=== PATIENT | male | born 1945 | race Caucasian/White ===

== ENCOUNTER 2019-05-14 11:22 | Inpatient (IN) | payer OTHER, MEDICARE ==
[~2019-05-14] VITALS: Ht 177.8 cm; Wt 86.1 kg
[~2019-05-14 11:22] MED LIST: CODGUAEL; CYCL10 PO; DESI25; GLUCOMETER; INS70/30I; INSN100I; INSR10I; LISHYD1012; METO50; NAPR500 PO; NIAC500; RANI150; ROSI4; SIMV40; TRAM50 PO
[2019-05-14 11:53] LABS: Source, Urine Clean Catch
[2019-05-14] MEDS ORDERED: ALLO100 PO (11:53)
[2019-05-14] MEDS ORDERED: Norvasc10 MG PO (11:53)
[2019-05-14] MEDS ORDERED: ATOR40TA PO (11:54)
[2019-05-14] MEDS ORDERED: Amoxicillin500 MG PO (11:54)
[2019-05-14] MEDS ORDERED: ARTIFICIAL TEA1 EACH BOTHEYES (11:55)
[2019-05-14] MEDS ORDERED: FURO40 PO (11:56)
[2019-05-14] MEDS ORDERED: FURO20 PO (11:56)
[2019-05-14] MEDS ORDERED: BASAGLAR K100 UNIT/1 SC ×2 (11:57→17:05)
[2019-05-14] MEDS ORDERED: HYDRA50 PO (11:57)
[2019-05-14] MEDS ORDERED: OMEPRAZOLE20 MG PO (11:58)
[2019-05-14] MEDS ORDERED: Isosorbide Mono60 MG PO (11:58)
[2019-05-14] MEDS ORDERED: POTCHL20ER PO (11:58)
[2019-05-14 11:59] LABS: Bilirubin, Urine Neg (Neg); Blood, Urine 1+ (Neg); Glucose Qualitative, Urine Neg (Neg); Ketones, Urine Neg (Neg); Leukocyte Esterase, Urine Neg (Neg); Nitrite, Urine Neg (Neg); Protein, Urine 2+ (Neg); Urobilinogen, Urine NORM (Normal)
[2019-05-14] MEDS ORDERED: ZIPR20 PO (12:00)
[2019-05-14] MEDS ORDERED: Coumadin2 MG PO ×2 (12:00→13:20)
[2019-05-14] MEDS ORDERED: METO2.5 PO (12:01)
[2019-05-14 12:02] LABS: BASOPHILS ABSOLUTE AUTO 0.03 K/mm3 (0.00-0.23); BASOPHILS PERCENT AUTO 0 % (0-2); EOSINOPHILS ABSOLUTE AUTO 0.14 K/mm3 (0.00-0.68); EOSINOPHILS PERCENT AUTO 2 % (0-6); Hemoglobin 12.8 g/dL (13.5-17.5); IMMATURE GRAN ABSOLUTE AUTO 0.04 K/mm3 (0.00-0.10); IMMATURE GRAN PERCENT AUTO 1 % (0-1); LYMPHOCYTES ABSOLUTE AUTO 1.76 K/mm3 (0.84-5.20); LYMPHOCYTES PERCENT AUTO 24 % (21-46); MONOCYTES ABSOLUTE AUTO 0.96 K/mm3 (0.16-1.47); MONOCYTES PERCENT AUTO 13 % (4-13); Mean Corpuscular HGB 27.2 pg (26.0-34.0); Mean Corpuscular HGB Conc 32.8 g/dL (31.5-36.5); Mean Corpuscular Volume 83 fL (80-100); Mean Platelet Volume 12.9 fL (9.1-12.4); NEUTROPHILS ABSOLUTE AUTO 4.42 K/mm3 (1.96-9.15); NEUTROPHILS PERCENT AUTO 60 % (41-73); Platelet Count 191 K/mm3 (150-400); RDW Coefficient Variation 16.5 % (11.7-14.2); RDW Standard Deviation 49.6 fL (35.1-46.3); Red Blood Cell Count 4.71 M/mm3 (4.30-5.90); White Blood Cell Count 7.35 K/mm3 (4.00-11.30)
[2019-05-14 12:09] LABS: Appearance, Urine Clear (Clear); Color, Urine Pale Yellow (P-Yellow)
[2019-05-14 12:11] LABS: Bacteria Not Seen /hpf; Red Blood Cells, Urine Rare /hpf (0-2); Squamous Epithelial Cells Rare /hpf (Few); White Blood Cells, Urine Not Seen /hpf (0-5)
[2019-05-14 12:17] LABS: International Normalized Ratio 1.38; Prothrombin Time Results 14.2 Sec (9.7-11.5)
[2019-05-14 12:20] LABS: Albumin, Blood 3.4 g/dL (3.4-5.0); Albumin/Globulin Ratio 0.8 (0.8-1.8); Bilirubin, Total 0.6 mg/dL (0.1-1.0); Bun/Creatinine Ratio 40.1 (12.0-20.0); Calcium, Blood 8.3 mg/dL (8.5-10.1); Creatinine, Blood 2.52 mg/dL (0.60-1.20); Globulin, Blood 4.2 g/dL (2.2-4.0); Potassium, Blood 2.8 mmol/L (3.5-5.5); Total Protein, Blood 7.6 g/dL (6.4-8.2)
[2019-05-14] MEDS ORDERED: Humulin R500 UNIT/1 SC (13:18)
--- NOTE | 2019-05-14 15:33 | NUR ---
echocardiogram completed
--- NOTE | 2019-05-14 15:56 | NUR ---
PT ARRIVED TO PCU 16 VIA GURNEY FROM ED. REPORT WAS GIVEN. PT IS A/OX3, BUT SEEMS A BIT SLOW TO ANSWER, AND DOESN'T CONTRIBUTE TO THE CONVERSATION, HIS CAME WITH HIM TO THE ED BUT WENT HOME. 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
[2019-05-14 17:54] LABS: Bun/Creatinine Ratio 40.4 (12.0-20.0); Calcium, Blood 8.1 mg/dL (8.5-10.1); Creatinine, Blood 2.4 mg/dL (0.60-1.20); Potassium, Blood 3.2 mmol/L (3.5-5.5)
--- NOTE | 2019-05-14 18:17 | NUR ---
pt doing ok, he denies complaints, his is at bedside, call light in reach.
[2019-05-15 04:11] LABS: BASOPHILS ABSOLUTE AUTO 0.03 K/mm3 (0.00-0.23); BASOPHILS PERCENT AUTO 1 % (0-2); EOSINOPHILS ABSOLUTE AUTO 0.28 K/mm3 (0.00-0.68); EOSINOPHILS PERCENT AUTO 5 % (0-6); Hematocrit 37.4 % (37.0-53.0); IMMATURE GRAN ABSOLUTE AUTO 0.03 K/mm3 (0.00-0.10); IMMATURE GRAN PERCENT AUTO 1 % (0-1); LYMPHOCYTES ABSOLUTE AUTO 1.59 K/mm3 (0.84-5.20); LYMPHOCYTES PERCENT AUTO 29 % (21-46); MONOCYTES ABSOLUTE AUTO 0.81 K/mm3 (0.16-1.47); MONOCYTES PERCENT AUTO 15 % (4-13); Mean Corpuscular HGB 26.7 pg (26.0-34.0); Mean Corpuscular HGB Conc 32.1 g/dL (31.5-36.5); Mean Corpuscular Volume 83 fL (80-100); NEUTROPHILS PERCENT AUTO 50 % (41-73); Platelet Count 173 K/mm3 (150-400); RDW Coefficient Variation 16.8 % (11.7-14.2); RDW Standard Deviation 51.5 fL (35.1-46.3); Red Blood Cell Count 4.49 M/mm3 (4.30-5.90); White Blood Cell Count 5.44 K/mm3 (4.00-11.30)
[2019-05-15 04:26] LABS: International Normalized Ratio 1.49; Prothrombin Time Results 15.2 Sec (9.7-11.5)
[2019-05-15 04:32] LABS: Albumin, Blood 3.1 g/dL (3.4-5.0); Albumin/Globulin Ratio 0.9 (0.8-1.8); Bilirubin, Total 0.7 mg/dL (0.1-1.0); Bun/Creatinine Ratio 40.1 (12.0-20.0); Calcium, Blood 8.2 mg/dL (8.5-10.1); Creatinine, Blood 2.37 mg/dL (0.60-1.20); Globulin, Blood 3.6 g/dL (2.2-4.0); Potassium, Blood 3.3 mmol/L (3.5-5.5); Total Protein, Blood 6.7 g/dL (6.4-8.2)
--- NOTE | 2019-05-15 06:19 | NUR ---
SHIFT SUMMARY ASSUMED CARE OF PT AT 1900 FROM SUZANNA BROTHERS, PATIENT AWAKE AND ALERT IN BED IN NO SIGNS OF DISTRESS. LUNG SOUNDS CLEAR UPPER LOBES, COARSE AND DIMINISHED IN BASES. IRREGULAR HEARTBEAT YING AT 55. PATIENT'S BASELINE SEEMS TO BE SLOW, SIMPLE RESPONSE, YET APPROPRIATE. MEDICATED AND TREATED PER EMAR AND UNIT PROTOCOL, NO ISSUES OUTSIDE OF ROUTINE MEDS. PATIENT USED URINAL APPROPRIATELY AND STAYED IN BED THE WHOLE SHIFT, USING CPAP FROM AROUND 10PM. WILL CONTINUE TO MONITOR AND WILL PASS CARE AND REPORT TO ONCOMING SHIFT AT 0700. BED LOCKED AND LOW, CALL LIGHT W/IN REACH
--- NOTE | 2019-05-15 07:30 | NUR ---
PT LAYING IN BED WITH HIS CPAP IN PLACE, SEEMS A BIT MORE ALERT THAN YESTERDAY WHEN ADMITTED, HE REPORTS IT TOOK HIM A WHILE TO GO TO SLEEP BUT SLEPT WELL AFTER, A/OX3, PLEASANT AND COOPERATIVE WITH CARE, FOLLOWS COMMANDS WELL, DENIES PAIN, LUNGS ARE CLEAR DIM IN BASES, RESP EVEN AND UNLABORED, NO COUGH NOTED, HRIRR, TELE IN PLACE RUNNING SR WITH FIRST DEGREE BLOCK, BBB, AND PVC'S, NO EDEMA NOTED, PPP+1, CAP REFILL <3SEC, VS STABLE, AFEBRILE, IV STABLE, IV SITES ARE CLEAR AND PATENT, BTX4, ABD FLAT SOFT NONTENDER, VOIDS WITHOUT DIFF, HAS PULLUPS IN PLACE, BUT ARE SOILED, PLACED URINAL FOR HIM, WILL GIVE HIM A BATH THIS AM, SKIN C/W/D, TJ PARKER, CALL LIGHT IN REACH.
--- NOTE | 2019-05-15 13:30 | NUR ---
pt doing ok, in to visit, she is concerned about his blood sugars, and that he isn't on the same insulin dosages as he is at home. call to Dr. Albert to let her know this. call light in reach.
--- NOTE | 2019-05-15 18:16 | NUR ---
pt doing ok, he states he's feeling pretty good, did get his insulin changed to his home doses. no acute changes this shift. call light in reach.
--- NOTE | 2019-05-15 22:23 | NUR ---
ASSUMED CARE APPROXIMATELY 1900; PT ALERT; PLEASANT AND COMPLIANT W/ CARE; AMBULATED TO BATHROOM W/ ASSISTANCE; CALLS APPROPRIATELY; FOLLOWS COMMANDS; PT STATED HE HAD FAMILY VISITING TODAY AND IS READY TO SLEEP; CPAP IN PLACE; WARM BLANKET BROUGHT TO PT; PT DENIES CHEST PAIN; DENIES NEEDS AT THIS TIME; CALL LIGHT IN REACH; BED IN LOWEST POSITION; WILL CONTINUE TO MONITOR CLOSELY
[2019-05-16 04:44] LABS: BASOPHILS ABSOLUTE AUTO 0.03 K/mm3 (0.00-0.23); BASOPHILS PERCENT AUTO 0 % (0-2); EOSINOPHILS ABSOLUTE AUTO 0.44 K/mm3 (0.00-0.68); EOSINOPHILS PERCENT AUTO 5 % (0-6); Hematocrit 41.2 % (37.0-53.0); Hemoglobin 13.5 g/dL (13.5-17.5); IMMATURE GRAN ABSOLUTE AUTO 0.02 K/mm3 (0.00-0.10); IMMATURE GRAN PERCENT AUTO 0 % (0-1); LYMPHOCYTES ABSOLUTE AUTO 1.61 K/mm3 (0.84-5.20); LYMPHOCYTES PERCENT AUTO 19 % (21-46); MONOCYTES ABSOLUTE AUTO 0.82 K/mm3 (0.16-1.47); MONOCYTES PERCENT AUTO 10 % (4-13); Mean Corpuscular HGB 27.4 pg (26.0-34.0); Mean Corpuscular HGB Conc 32.8 g/dL (31.5-36.5); Mean Corpuscular Volume 84 fL (80-100); Mean Platelet Volume 12.4 fL (9.1-12.4); NEUTROPHILS ABSOLUTE AUTO 5.67 K/mm3 (1.96-9.15); NEUTROPHILS PERCENT AUTO 66 % (41-73); Platelet Count 180 K/mm3 (150-400); RDW Coefficient Variation 16.6 % (11.7-14.2); RDW Standard Deviation 50.4 fL (35.1-46.3); Red Blood Cell Count 4.92 M/mm3 (4.30-5.90); White Blood Cell Count 8.59 K/mm3 (4.00-11.30)
[2019-05-16 05:00] LABS: International Normalized Ratio 1.51; Prothrombin Time Results 15.4 Sec (9.7-11.5)
[2019-05-16 05:05] LABS: Bun/Creatinine Ratio 36.1 (12.0-20.0); Calcium, Blood 8.3 mg/dL (8.5-10.1); Creatinine, Blood 2.19 mg/dL (0.60-1.20); Potassium, Blood 3.4 mmol/L (3.5-5.5)
--- NOTE | 2019-05-16 05:59 | NUR ---
SHIFT SUMMARY PT PLEASANT AND COMPLIANT T/O SHIFT; AMBULATED TO BATHROOM x 2 W/ GATE BELT AND FWW; PT SLOW BUT STEADY ON FEET; PT HAD SHORT RUN OF SVT THIS AM, ASSYMPTOMATIC; PT DENIES PAIN; PT ON RA W/ O2 SATS >92; CALL LIGHT IN REACH; BED IN LOWEST POSITION; WILL CONTINUE TO MONITOR UNTIL HAND OFF TO DAY SHIFT RN.
--- NOTE | 2019-05-16 07:58 | NUR ---
AM NOTE. ASSUMED CARE OF PT APROX 0700. PT IS A&Ox4 WITH OCC FORGETFULNESS. PT WAS ADMITTED FOR CHF EXAC. PT IS CURRENTLY BEING TREATED WTIH LASIX. PT IS ON RA WITH O2 SATS >92%. PT IS IN NSR W/PACS IN THE 70'S. TRACE EDEMA IS NOTED TO HIS BLE. L/S CLEAR T/O DIM IN THE BASES. BT PRESENT AND NORMOACTIVE. ABD IS SOFT AND NONTENDER TO PALP. PT IS UP IN THE CHAIR FOR BREAKFAST W/1 PERSON ASSIST. CALL LIGHT IN REACH, WILL CONTINUE TO MONITOR.
--- NOTE | 2019-05-16 18:07 | NUR ---
SHIFT SUMMARY. NO ACUTE NEGATIVE CHANGES NOTED THIS SHIFT. PT'S VS HAVE BEEN STABLE. PT HAS BEEN UP IN RECLINER MOST OF THE DAY. PT HAS BEEN CONT OF URINE THIS SHIFT. PT HAS BEEN WALKING TO THE BATHROOM WITH 1 PERSON ASSIST. PER PT'S , IF PT HAS FRUIT OF ANY KIND HIS BLOOD SUGAR WILL "GO SIMRAN HIGH." SO PT AND REQUEST NO FRUIT. ALSO PT'S STATES THAT HE SHOULD NOT GET HIS INSULIN INJECTIONS IN HIS BELLY/ABD AREA BECAUSE IT DOES NOT ABSORB WELL. CALL LIGHT IN REACH, BED IS LOCKED AND LOW WILL CONTINUE TO MONITOR UNTIL REPORT IS GIVEN TO ONCOMING RN.
--- NOTE | 2019-05-16 20:00 | NUR ---
ASSUMED CARE APPROXIMATELY 1900; PT ALERT AND IS MORE ENGAGED W/ CARE TODAY; PT SMILING AND JOKING; ENCOURAGED PT TO BRUSH TEETH AND TO SHOWER; LINEN CHANGES AND SHOWER PROVIDED BY THIS NURSE AND AID; PT TOLERATED WELL; PT REQUESTED CPAP UPON POSITIONING IN BED AND STATED HE WANTED TO REST; CALL LIGHT IN REACH; BED IN LOWEST POSITION; WILL CONTINUE TO MONITOR CLOSELY
[2019-05-17 04:09] LABS: BASOPHILS ABSOLUTE AUTO 0.03 K/mm3 (0.00-0.23); BASOPHILS PERCENT AUTO 0 % (0-2); EOSINOPHILS ABSOLUTE AUTO 0.33 K/mm3 (0.00-0.68); EOSINOPHILS PERCENT AUTO 4 % (0-6); Hematocrit 37.8 % (37.0-53.0); Hemoglobin 12.5 g/dL (13.5-17.5); IMMATURE GRAN ABSOLUTE AUTO 0.02 K/mm3 (0.00-0.10); IMMATURE GRAN PERCENT AUTO 0 % (0-1); LYMPHOCYTES ABSOLUTE AUTO 2.17 K/mm3 (0.84-5.20); LYMPHOCYTES PERCENT AUTO 25 % (21-46); MONOCYTES ABSOLUTE AUTO 0.71 K/mm3 (0.16-1.47); MONOCYTES PERCENT AUTO 8 % (4-13); Mean Corpuscular HGB 27.7 pg (26.0-34.0); Mean Corpuscular HGB Conc 33.1 g/dL (31.5-36.5); Mean Corpuscular Volume 84 fL (80-100); Mean Platelet Volume 12.6 fL (9.1-12.4); NEUTROPHILS PERCENT AUTO 63 % (41-73); Platelet Count 168 K/mm3 (150-400); RDW Coefficient Variation 16.7 % (11.7-14.2); RDW Standard Deviation 51.2 fL (35.1-46.3); Red Blood Cell Count 4.51 M/mm3 (4.30-5.90); White Blood Cell Count 8.76 K/mm3 (4.00-11.30)
[2019-05-17 04:24] LABS: International Normalized Ratio 1.69; Prothrombin Time Results 17.1 Sec (9.7-11.5)
[2019-05-17 04:34] LABS: Albumin, Blood 2.9 g/dL (3.4-5.0); Albumin/Globulin Ratio 0.8 (0.8-1.8); Bilirubin, Total 0.6 mg/dL (0.1-1.0); Bun/Creatinine Ratio 35.3 (12.0-20.0); Calcium, Blood 8.1 mg/dL (8.5-10.1); Creatinine, Blood 2.04 mg/dL (0.60-1.20); Globulin, Blood 3.7 g/dL (2.2-4.0); Magnesium, Blood 1.7 mg/dL (1.6-2.4); Potassium, Blood 3.5 mmol/L (3.5-5.5); Total Protein, Blood 6.6 g/dL (6.4-8.2)
--- NOTE | 2019-05-17 06:29 | NUR ---
SHIFT SUMMARY PT ALERT; PLEASANT AND COMPLIANT W/ CARE; SLEPT APPROXIMATELY 7 HOURS W/ CPAP IN PLACE; CURRENTLY RESTING IN BED ON RA; O2 SATS >90; WILL CONTINUE TO MONITOR UNTIL HAND OFF TO DAY SHIFT RN.
--- NOTE | 2019-05-17 13:38 | NUR ---
DISCHARGE HOME PT DISCHARGED HOME VIA W/C ACCOMPANIED BY . PT ALERT AND ORIENTED. MEDICATION ORDER FAXED TO [facility] AND [place]. IV REMOVED X2. PRESSURE DRESSING APPLIED TO BOTH SITES. NO BLEEDING NOTED. CONTINUE POT.
== END 2019-05-17 15:13 | disposition home or self-care (01) | DRG 291 ==
LOC: ER 11:22 → PCU 13:59
PROVIDERS: Emergency Medicine; Nurse Practitioner Acute Care; ADMIT Internal Medicine
DX: I13.0 Hypertensive heart and chronic kidney disease with heart failure and stage 1 through stage 4 chronic kidney disease, or unspecified chronic kidney disease (principal); I50.31 Acute diastolic (congestive) heart failure; N18.3 Chronic kidney disease, stage 3 (moderate); I25.10 Atherosclerotic heart disease of native coronary artery without angina pectoris; R19.7 Diarrhea, unspecified; K21.9 Gastro-esophageal reflux disease without esophagitis; E11.51 Type 2 diabetes mellitus with diabetic peripheral angiopathy without gangrene; E11.22 Type 2 diabetes mellitus with diabetic chronic kidney disease; G47.33 Obstructive sleep apnea (adult) (pediatric); E78.5 Hyperlipidemia, unspecified; D63.1 Anemia in chronic kidney disease; F32.9 Major depressive disorder, single episode, unspecified; M10.9 Gout, unspecified; E87.6 Hypokalemia; Z95.1 Presence of aortocoronary bypass graft; Z79.01 Long term (current) use of anticoagulants; Z79.4 Long term (current) use of insulin; Z79.899 Other long term (current) drug therapy
CPT/HCPCS: 36415; 70450; 71046; 80048; 80053; 81001; 82947; 83735; 83880; 84145; 84484; 85025; 85610; 85730; 93005; 93010; 93306; 94660; 94762; 96365; 96366; 96368; 97110; 97116; 97162; 97165; 97530; 99285-25; A9270; J1815; J1940; J3475; J3480; J7120

== ENCOUNTER 2020-06-27 18:11 | Inpatient (IN) | payer OTHER, MEDICARE ==
[~2020-06-27] VITALS: Ht 177.8 cm; Wt 83.5 kg
[~2020-06-27 18:11] MED LIST changes: +ALLO100 PO; +ARTIFICIAL TEA1 EACH BOTHEYES; +Amoxicillin500 MG PO; +FURO20 PO; +Humulin R500 UNIT/1 SC; +Isosorbide Mono60 MG PO; +METO2.5 PO; +OMEPRAZOLE20 MG PO; +ZIPR20 PO
[2020-06-27 19:00] LABS: BASOPHILS ABSOLUTE AUTO 0.07 K/mm3 (0.00-0.23); BASOPHILS PERCENT AUTO 1 % (0-2); EOSINOPHILS PERCENT AUTO 3 % (0-6); Hematocrit 36.5 % (37.0-53.0); Hemoglobin 11.8 g/dL (13.5-17.5); IMMATURE GRAN ABSOLUTE AUTO 0.02 K/mm3 (0.00-0.10); IMMATURE GRAN PERCENT AUTO 0 % (0-1); LYMPHOCYTES ABSOLUTE AUTO 2.77 K/mm3 (0.84-5.20); LYMPHOCYTES PERCENT AUTO 28 % (21-46); MONOCYTES ABSOLUTE AUTO 1.01 K/mm3 (0.16-1.47); MONOCYTES PERCENT AUTO 10 % (4-13); Mean Corpuscular HGB 27.9 pg (26.0-34.0); Mean Corpuscular HGB Conc 32.3 g/dL (31.5-36.5); Mean Corpuscular Volume 86 fL (80-100); Mean Platelet Volume 11.2 fL (9.1-12.4); NEUTROPHILS ABSOLUTE AUTO 5.76 K/mm3 (1.96-9.15); NEUTROPHILS PERCENT AUTO 58 % (41-73); Platelet Count 234 K/mm3 (150-400); RDW Coefficient Variation 16.7 % (11.7-14.2); RDW Standard Deviation 52.2 fL (35.1-46.3); Red Blood Cell Count 4.23 M/mm3 (4.30-5.90); White Blood Cell Count 9.93 K/mm3 (4.00-11.30)
[2020-06-27] MEDS ORDERED: AMOX250 PO (19:09)
[2020-06-27] MEDS ORDERED: SERT25 PO (19:11)
[2020-06-27] MEDS ORDERED: SPIR25 PO (19:12)
[2020-06-27 19:14] LABS: International Normalized Ratio 1.7; Prothrombin Time Results 17.7 Sec (9.7-11.5)
[2020-06-27 19:22] LABS: Albumin, Blood 3.5 g/dL (3.4-5.0); Albumin/Globulin Ratio 0.9 (0.8-1.8); Bilirubin, Total 0.4 mg/dL (0.1-1.0); Bun/Creatinine Ratio 32.8 (12.0-20.0); Calcium, Blood 7.9 mg/dL (8.5-10.1); Creatinine, Blood 2.38 mg/dL (0.60-1.20); Globulin, Blood 3.8 g/dL (2.2-4.0); Potassium, Blood 3.7 mmol/L (3.5-5.5); Total Protein, Blood 7.3 g/dL (6.4-8.2)
[2020-06-27 20:02] LABS: Source, Urine Catheter
[2020-06-27 20:07] LABS: Appearance, Urine Clear (Clear); Bilirubin, Urine Neg (Neg); Blood, Urine Neg (Neg); Color, Urine Yellow (P-Yellow); Glucose Qualitative, Urine Neg (Neg); Ketones, Urine Neg (Neg); Leukocyte Esterase, Urine Neg (Neg); Nitrite, Urine Neg (Neg); Protein, Urine Neg (Neg); Urobilinogen, Urine NORM (Normal)
[2020-06-27 20:59] LABS: Influenza A, PCR Negative (NEGATIVE); Influenza B, PCR Negative (NEGATIVE); Resp Syncytial Virus, PCR Negative (NEGATIVE); SARS-Cov-2 (COVID-19) PCR, MMC Negative (NEGATIVE)
[2020-06-27] MEDS ORDERED: ATOR40TA PO (21:44)
[2020-06-27] MEDS ORDERED: Norvasc10 MG PO (21:44)
[2020-06-27] MEDS ORDERED: BUPROPION XL150 M1 PO (21:45)
[2020-06-27] MEDS ORDERED: CALCIUM 500 MG1 EAC5 PO (21:46)
[2020-06-27] MEDS ORDERED: FERROUS GLUCON324 M6 PO (21:46)
[2020-06-27] MEDS ORDERED: FURO20 PO (21:47)
[2020-06-27] MEDS ORDERED: HYDRA50 PO (21:47)
[2020-06-27] MEDS ORDERED: BASAGLAR K100 UNIT/1 SC (21:48)
[2020-06-27] MEDS ORDERED: POTCHL20ER PO (21:49)
[2020-06-27] MEDS ORDERED: NOVOLOG FL100 UNIT/3 SC (21:49)
[2020-06-27] MEDS ORDERED: METO25 PO (21:50)
[2020-06-27] MEDS ORDERED: TAMS.4ER PO (21:50)
[2020-06-27] MEDS ORDERED: Coumadin2 MG PO (21:51)
[2020-06-27] MEDS ORDERED: VANICREAM TOP (21:52)
[2020-06-28 02:41] LABS: BASOPHILS ABSOLUTE AUTO 0.06 K/mm3 (0.00-0.23); BASOPHILS PERCENT AUTO 1 % (0-2); EOSINOPHILS ABSOLUTE AUTO 0.21 K/mm3 (0.00-0.68); EOSINOPHILS PERCENT AUTO 2 % (0-6); Hematocrit 35.9 % (37.0-53.0); Hemoglobin 11.5 g/dL (13.5-17.5); IMMATURE GRAN ABSOLUTE AUTO 0.02 K/mm3 (0.00-0.10); IMMATURE GRAN PERCENT AUTO 0 % (0-1); LYMPHOCYTES ABSOLUTE AUTO 1.68 K/mm3 (0.84-5.20); LYMPHOCYTES PERCENT AUTO 18 % (21-46); MONOCYTES ABSOLUTE AUTO 0.69 K/mm3 (0.16-1.47); MONOCYTES PERCENT AUTO 7 % (4-13); Mean Corpuscular HGB 27.8 pg (26.0-34.0); Mean Corpuscular Volume 87 fL (80-100); Mean Platelet Volume 11.7 fL (9.1-12.4); NEUTROPHILS ABSOLUTE AUTO 6.83 K/mm3 (1.96-9.15); NEUTROPHILS PERCENT AUTO 72 % (41-73); Platelet Count 217 K/mm3 (150-400); RDW Coefficient Variation 16.5 % (11.7-14.2); RDW Standard Deviation 52.9 fL (35.1-46.3); Red Blood Cell Count 4.14 M/mm3 (4.30-5.90); White Blood Cell Count 9.49 K/mm3 (4.00-11.30)
[2020-06-28 03:00] LABS: Albumin, Blood 3.1 g/dL (3.4-5.0); Albumin/Globulin Ratio 0.9 (0.8-1.8); Bilirubin, Total 0.6 mg/dL (0.1-1.0); Bun/Creatinine Ratio 32.6 (12.0-20.0); Calcium, Blood 7.9 mg/dL (8.5-10.1); Creatinine, Blood 2.36 mg/dL (0.60-1.20); Globulin, Blood 3.6 g/dL (2.2-4.0); Total Protein, Blood 6.7 g/dL (6.4-8.2)
[2020-06-28 03:13] LABS: CPK Creatine Kinase 105 U/L (39-308)
[2020-06-28 11:04] LABS: Troponin I 0.128 ng/mL (0.000-0.040)
--- NOTE | 2020-06-28 11:06 | NUR ---
AM NOTE PT CBG THIS AM 445; NOTIFIED DR ALVAREZ NEW ORDERS FOR LANTUS 5UNITS BID/ DR ALVAREZ PLACED NEW ORDERS FOR LANTUS 10 UNIT IN AM AND 5UNIT AT NOC PRIOR TO ADMINISTRATION. RECHECK OF BLOOD GLUCOSE >400; NOTIFIED DR ALVAREZ, NEW ORDERS TO GIVE AN ADDITIONAL 10 INITS. PT ALERT AND ORIENTEDx3; CALM AND COOPERATIVE WITH CARE. PT DENIES PAIN, NAUSEA, AND DIZZINESS. PT REPORTS SOB WITH EXERTION, SPO2 >90%. VSS. NO OTHER ACUTE CHANGES NOTED DURING SHIFT. WILL CONTINUE TO MONITOR.
--- NOTE | 2020-06-28 11:16 | NUR ---
Echocardiogram completed.
--- NOTE | 2020-06-28 18:44 | NUR ---
SHIFT SUMMARY BLOOD GLUCOSE TRENDING DOWN T/O SHIFT. PT CONTINUES TO BE ALERT AND ORIENTED, AND DENIES PAIN, CHEST PAIN, NAUSEA AND DIZZINESS. PT SOB WITH EXERTION. UP WITH 1 PERSON ASSIST. VSS. NO OTHER ACUTE CHANGES NOTED DURING SHIFT. WILL CONTINUE TO MONITOR UNTIL REPORT GIVEN TO ONCOMING RN.
--- NOTE | 2020-06-28 19:22 | NUR ---
CRITICAL PTT; NOTIFIED PHARMACY; ORDERS TO HOLD HEPARIN FOR 1 HR AND RECHECK LABS.
--- NOTE | 2020-06-28 20:56 | NUR ---
per pharamacy - ptt resulted 96.1. adjusted hep gtt to start at 12u/kg/hr. will monitor for signs and symptoms of bleeding. vss.
[2020-06-29 04:21] LABS: BASOPHILS ABSOLUTE AUTO 0.08 K/mm3 (0.00-0.23); BASOPHILS PERCENT AUTO 1 % (0-2); EOSINOPHILS ABSOLUTE AUTO 0.27 K/mm3 (0.00-0.68); EOSINOPHILS PERCENT AUTO 3 % (0-6); Hematocrit 35.2 % (37.0-53.0); Hemoglobin 11.2 g/dL (13.5-17.5); IMMATURE GRAN ABSOLUTE AUTO 0.03 K/mm3 (0.00-0.10); IMMATURE GRAN PERCENT AUTO 0 % (0-1); LYMPHOCYTES ABSOLUTE AUTO 1.65 K/mm3 (0.84-5.20); LYMPHOCYTES PERCENT AUTO 18 % (21-46); MONOCYTES ABSOLUTE AUTO 0.75 K/mm3 (0.16-1.47); MONOCYTES PERCENT AUTO 8 % (4-13); Mean Corpuscular HGB 27.8 pg (26.0-34.0); Mean Corpuscular HGB Conc 31.8 g/dL (31.5-36.5); Mean Corpuscular Volume 87 fL (80-100); Mean Platelet Volume 11.7 fL (9.1-12.4); NEUTROPHILS PERCENT AUTO 70 % (41-73); Platelet Count 212 K/mm3 (150-400); RDW Coefficient Variation 16.6 % (11.7-14.2); RDW Standard Deviation 52.6 fL (35.1-46.3); Red Blood Cell Count 4.03 M/mm3 (4.30-5.90); White Blood Cell Count 9.28 K/mm3 (4.00-11.30)
[2020-06-29 04:42] LABS: Albumin, Blood 2.9 g/dL (3.4-5.0); Albumin/Globulin Ratio 0.8 (0.8-1.8); Bilirubin, Total 0.5 mg/dL (0.1-1.0); Bun/Creatinine Ratio 32.4 (12.0-20.0); Calcium, Blood 8.3 mg/dL (8.5-10.1); Creatinine, Blood 2.19 mg/dL (0.60-1.20); Globulin, Blood 3.6 g/dL (2.2-4.0); Potassium, Blood 3.7 mmol/L (3.5-5.5); Total Protein, Blood 6.5 g/dL (6.4-8.2)
[2020-06-29 04:50] LABS: International Normalized Ratio 2.38; Prothrombin Time Results 24.2 Sec (9.7-11.5)
--- NOTE | 2020-06-29 05:01 | NUR ---
CRITICAL PTT 120- PER PHARMACY HOLDING HEP GTT FOR ONE HOUR
--- NOTE | 2020-06-29 05:55 | NUR ---
SHIFT SUMMARY PT RESTED WELL THROUGH NIGHT. ALERT AND ORIENTED - ABLE TO MAKE NEEDS KNOWN. SATS >90% ON ROOM AIR. TELE NSR - NO C/O CHEST PAIN. CBG ELEVATED - CALLED MD - ORDERED SEMGLEE FOR AM. VOIDING TO URINAL - ADEQUATE UO. NO BM. NO C/O PAIN. HEP GTT TEMPORARILY PAUSED D/T ELEVATED PTT. RESTARTING HEP GTT AT 0600 WITH NEW DOSING. WILL CONTINUE TO MONITOR. VSS. CALL LIGHT WITHIN REACH, BED IN LOWEST POSITION. WILL CONTINUE TO MONITOR.
[2020-06-29] MEDS ORDERED: VANICREAM TD ×2 (09:29→09:31)
[2020-06-29] MEDS ORDERED: BASAGLAR K100 UNIT/1 SC (09:36)
--- NOTE | 2020-06-29 10:38 | NUR ---
PT REPORTS DIZZINESS WITH HOME O2; PT STATES THAT DOESNT HAPPEN AT HOME, HE STATES HE WALKS REGULARLY AT HOME. ORTHOSTATIC VS COMPELTED. NOTIFIED DR ALVAREZ OF RESULTS; NEW ORDERS TO HAVE PT WEAR COMPRESSION STOCKINGS AT HOME AND PLACE ROWAN HOSE ON PT PRIOR TO DISCHARGE; AND TO CONTINUE WITH DISCHARGE HOME.
--- NOTE | 2020-06-29 13:19 | NUR ---
DISCHARGE SUMMARY PT A&Ox4; CALM AND COOPERAIVE WITH CARE. PT RESTING IN BED DUIRNG SHIFT, UP WITH WALKER AND SBA. PT DENIES PAIN, CHEST PAIN, NAUSEA, SOB, AND DIZZINESS. VSS. NO OTHER ACUTE CHANGES NOTED DURING SHIFT. PT EDUCATED ON DISCHARGE INSTRUCTIONS, FOLLOW UP APPOINTMENT AND MEDICATIONS CHANGES. [facility] PT LEFT ROOM VIA WHEELCHAIR AT 1231. PT STABLE UPON DISCHARGE
== END 2020-06-29 12:49 | disposition home or self-care (01) | DRG 189 ==
LOC: ER 18:11 → PCU 22:08
PROVIDERS: Internal Medicine; Pharmacist; Physician Assistant; ADMIT Internal Medicine
PROC: 5A09357 Assistance with Respiratory Ventilation, Less than 24 Consecutive Hours, Continuous Positive Airway Pressure (ICD-10-PCS; principal; 2020-06-27)
DX: J96.01 Acute respiratory failure with hypoxia (principal); I50.32 Chronic diastolic (congestive) heart failure; I13.0 Hypertensive heart and chronic kidney disease with heart failure and stage 1 through stage 4 chronic kidney disease, or unspecified chronic kidney disease; Z79.01 Long term (current) use of anticoagulants; Z79.4 Long term (current) use of insulin; Z95.5 Presence of coronary angioplasty implant and graft; I25.10 Atherosclerotic heart disease of native coronary artery without angina pectoris; Z95.2 Presence of prosthetic heart valve; Z89.411 Acquired absence of right great toe; E11.51 Type 2 diabetes mellitus with diabetic peripheral angiopathy without gangrene; E11.22 Type 2 diabetes mellitus with diabetic chronic kidney disease; G47.33 Obstructive sleep apnea (adult) (pediatric); Z89.412 Acquired absence of left great toe; E11.649 Type 2 diabetes mellitus with hypoglycemia without coma; Z20.828 Contact with and (suspected) exposure to other viral communicable diseases
CPT/HCPCS: 0241U; 36415; 71045; 78580; 80053; 81003; 82140; 82550; 82947; 83605; 83880; 84484; 85025; 85610; 85730; 86850; 86900; 86901; 87040; 87086; 93005; 93010; 93306; 94640; 94660; 94761; 94762; 96374; 99285-25; A9270; A9540; J0610; J1644; J1650; J7030

== ENCOUNTER 2020-12-06 19:17 | Inpatient (IN) | payer OTHER ==
[~2020-12-06] VITALS: Ht 177.8 cm; Wt 95.7 kg
[~2020-12-06 19:17] MED LIST changes: +AMOX250 PO; +ATOR40TA PO; +BASAGLAR K100 UNIT/1 SC; +BUPROPION XL150 M1 PO; +CALCIUM 500 MG1 EAC5 PO; +Coumadin2 MG PO; +FERROUS GLUCON324 M6 PO; +HYDRA50 PO; +METO25 PO; +NOVOLOG FL100 UNIT/3 SC; +Norvasc10 MG PO; +POTCHL20ER PO; +SERT25 PO; +SPIR25 PO; +TAMS.4ER PO; +VANICREAM TD; +VANICREAM TOP
[2020-12-06 19:42] LABS: BASOPHILS ABSOLUTE AUTO 0.05 K/mm3 (0.00-0.23); BASOPHILS PERCENT AUTO 1 % (0-2); EOSINOPHILS ABSOLUTE AUTO 0.21 K/mm3 (0.00-0.68); EOSINOPHILS PERCENT AUTO 3 % (0-6); Hematocrit 32.9 % (37.0-53.0); Hemoglobin 10.9 g/dL (13.5-17.5); IMMATURE GRAN ABSOLUTE AUTO 0.02 K/mm3 (0.00-0.10); IMMATURE GRAN PERCENT AUTO 0 % (0-1); LYMPHOCYTES ABSOLUTE AUTO 1.06 K/mm3 (0.84-5.20); LYMPHOCYTES PERCENT AUTO 14 % (21-46); MONOCYTES ABSOLUTE AUTO 0.62 K/mm3 (0.16-1.47); MONOCYTES PERCENT AUTO 8 % (4-13); Mean Corpuscular HGB 27.2 pg (26.0-34.0); Mean Corpuscular HGB Conc 33.1 g/dL (31.5-36.5); Mean Corpuscular Volume 82 fL (80-100); Mean Platelet Volume 12.5 fL (9.1-12.4); NEUTROPHILS ABSOLUTE AUTO 5.82 K/mm3 (1.96-9.15); NEUTROPHILS PERCENT AUTO 75 % (41-73); Platelet Count 222 K/mm3 (150-400); RDW Coefficient Variation 17.6 % (11.7-14.2); RDW Standard Deviation 52.7 fL (35.1-46.3); Red Blood Cell Count 4.01 M/mm3 (4.30-5.90); White Blood Cell Count 7.78 K/mm3 (4.00-11.30)
[2020-12-06 20:05] LABS: Troponin I 0.081 ng/mL (0.000-0.040)
[2020-12-06 20:08] LABS: Albumin, Blood 3.3 g/dL (3.4-5.0); Albumin/Globulin Ratio 0.8 (0.8-1.8); Bilirubin, Total 0.5 mg/dL (0.1-1.0); Bun/Creatinine Ratio 29.2 (12.0-20.0); Calcium, Blood 8.1 mg/dL (8.5-10.1); Creatinine, Blood 2.19 mg/dL (0.60-1.20); Globulin, Blood 4.2 g/dL (2.2-4.0); Potassium, Blood 4.8 mmol/L (3.5-5.5); Total Protein, Blood 7.5 g/dL (6.4-8.2)
[2020-12-06] MEDS ORDERED: AMLO10 PO (21:42)
[2020-12-06] MEDS ORDERED: ALLO100 PO (21:42)
[2020-12-06] MEDS ORDERED: ATOR40TA PO (21:43)
[2020-12-06] MEDS ORDERED: Budeprion Xl300 MG PO (21:43)
[2020-12-06] MEDS ORDERED: FERROUS GLUCON324 M2 PO (21:44)
[2020-12-06] MEDS ORDERED: CALCIUM 600 +1 EA11 PO (21:44)
[2020-12-06] MEDS ORDERED: FURO20 PO (21:44)
[2020-12-06] MEDS ORDERED: NOVOLOG FL100 UNIT/3 SC (21:45)
[2020-12-06] MEDS ORDERED: OMEP20ER PO (21:45)
[2020-12-06] MEDS ORDERED: Isosorbide Mono30 MG PO (21:45)
[2020-12-06] MEDS ORDERED: METO50 PO (21:45)
[2020-12-06] MEDS ORDERED: TAMS.4ER PO (21:46)
[2020-12-06] MEDS ORDERED: SPIR25 PO (21:46)
[2020-12-06] MEDS ORDERED: POTCHL20ER PO (21:46)
[2020-12-06] MEDS ORDERED: Coumadin2 MG PO ×2 (21:47→21:54)
--- NOTE | 2020-12-07 00:35 | NUR ---
PATIENT IS A NEW ADMIT FROM THE ED. ARRIVED VIA W/C AND SBA TRANSFER FROM W/C TO BED. AXOX 3 AND ON ROOM AIR. DENIES CHEST PAIN, SOB, AND N/V. NITRO PATCH PLACEMENT ON UPPER LEFT CHEST FROM ED. BILATERAL TOES AMPUTATED. TELEMETRY PLACED AND TECH REPORTS NSR WITH FIRST DEGREE @60. USING URINAL AT BEDSIDE. PATIENT REPORTS LOST ODL FROM [employer] EVENT WHILE DRIVING ON [employer] 2013. CYST ON RIGHT UPPER CHEST DIME SIZE. PATIENT ORIENTED TO ROOM AND CALL LIGHT SYSTEM. REPORTS USES CPAP AT HOME AND RT NOTIFIED. CALL LIGHT IN REACH.
--- NOTE | 2020-12-07 03:16 | NUR ---
SHIFT SUMMARY PATIENT HAD NO ACUTE CHANGES OBSERVED. AXOX 3 AND SBA STANDING USING URINAL AT BEDSIDE AND ONE ASSIST TO BR. DENIES CHEST PAIN, SOB, AND N/V. NITRO PATCH UPPER CHEST FROM ED. PIV REMAINS INTACT. IV ABXS INFUSED. MEASUREMENT TECHNICIAN REPORTS NSR W/FIRST DEGREE @ 60. HX BILATERAL TOES AMPUTATED. REPORTS USING CPAP AT HOME AND RT NOTIFIED. REFUSED CPAP HERE. CYST RIGHT UPPER CHEST DIME SIZE NEAR MIDLINE. VSS/AFEBRILE. REPORTS [facility] PATIENT. CALL LIGHT IN REACH. BED IN LOWEST POSITION AND ALARM ACTIVATED, IMPULSIVE. WILL CONTINUE TO MONITOR UNTIL DAY SHIFT NURSE ASSUMES CARE.
[2020-12-07 04:40] LABS: BASOPHILS ABSOLUTE AUTO 0.06 K/mm3 (0.00-0.23); BASOPHILS PERCENT AUTO 1 % (0-2); EOSINOPHILS ABSOLUTE AUTO 0.27 K/mm3 (0.00-0.68); EOSINOPHILS PERCENT AUTO 4 % (0-6); Hematocrit 32.8 % (37.0-53.0); Hemoglobin 10.8 g/dL (13.5-17.5); IMMATURE GRAN ABSOLUTE AUTO 0.02 K/mm3 (0.00-0.10); IMMATURE GRAN PERCENT AUTO 0 % (0-1); LYMPHOCYTES ABSOLUTE AUTO 1.27 K/mm3 (0.84-5.20); LYMPHOCYTES PERCENT AUTO 17 % (21-46); MONOCYTES PERCENT AUTO 9 % (4-13); Mean Corpuscular HGB 27.2 pg (26.0-34.0); Mean Corpuscular HGB Conc 32.9 g/dL (31.5-36.5); Mean Corpuscular Volume 83 fL (80-100); Mean Platelet Volume 11.4 fL (9.1-12.4); NEUTROPHILS ABSOLUTE AUTO 5.26 K/mm3 (1.96-9.15); NEUTROPHILS PERCENT AUTO 69 % (41-73); Platelet Count 182 K/mm3 (150-400); RDW Coefficient Variation 17.3 % (11.7-14.2); RDW Standard Deviation 51.9 fL (35.1-46.3); Red Blood Cell Count 3.97 M/mm3 (4.30-5.90); White Blood Cell Count 7.58 K/mm3 (4.00-11.30)
[2020-12-07 04:54] LABS: International Normalized Ratio 3.29; Prothrombin Time Results 33.2 Sec (9.7-11.5)
--- NOTE | 2020-12-07 04:57 | NUR ---
STATING 87% ON ROOM AIR AND PLACED ON 2L O2 NC STATING 92%. WCTM
[2020-12-07 04:59] LABS: Albumin, Blood 3.2 g/dL (3.4-5.0); Albumin/Globulin Ratio 0.8 (0.8-1.8); Bilirubin, Total 0.5 mg/dL (0.1-1.0); Bun/Creatinine Ratio 30.6 (12.0-20.0); Calcium, Blood 7.7 mg/dL (8.5-10.1); Creatinine, Blood 2.19 mg/dL (0.60-1.20); Globulin, Blood 4.1 g/dL (2.2-4.0); Potassium, Blood 3.8 mmol/L (3.5-5.5); Total Protein, Blood 7.3 g/dL (6.4-8.2)
[2020-12-07 05:08] LABS: Troponin I 0.118 ng/mL (0.000-0.040)
[2020-12-07] MEDS ORDERED: INSULANI SC ×2 (08:15→08:16)
[2020-12-07 11:15] LABS: Troponin I 0.118 ng/mL (0.000-0.040)
[2020-12-07 13:14] LABS: SARS-Cov-2 (COVID-19) PCR, MMC NEGATIVE (NEGATIVE)
--- NOTE | 2020-12-07 16:02 | NUR ---
BLADDER SCAN/MEDICATIONS THIS RN CALLED AND NOTIFIED DR. CONRAD PT HAD 296 ML IN BLADDER WITH NO URGE TO VOID. ALSO DISCUSSED PT'S LONG ACTING INSULIN HOME DOSE AND CPAP. NEW ORDERS PER DR. CONRAD. SEE PHYSICIAN ORDERS. NO NEW ORDERS FOR BLADDER SCAN AMOUNT AT THIS TIME.
--- NOTE | 2020-12-07 18:09 | NUR ---
SHIFT SUMMARY PT HAS HAD NO COMPLAINTS THIS SHIFT. PT CONTINUES TO BE ON 2L OXYGEN VIA NC. PT HAS HAD A GOOD APPETITE. PT UP TO CHAIR FOR DINNER AND TOLERATING WELL. NO ACUTE CHANGES THIS SHIFT. WILL CONTINUE TO MONITOR AND REPORT TO ONCOMING RN. CALL LIGHT IN REACH.
[2020-12-08 05:18] LABS: BASOPHILS ABSOLUTE AUTO 0.06 K/mm3 (0.00-0.23); BASOPHILS PERCENT AUTO 1 % (0-2); EOSINOPHILS ABSOLUTE AUTO 0.13 K/mm3 (0.00-0.68); EOSINOPHILS PERCENT AUTO 2 % (0-6); Hematocrit 31.4 % (37.0-53.0); Hemoglobin 10.3 g/dL (13.5-17.5); IMMATURE GRAN ABSOLUTE AUTO 0.02 K/mm3 (0.00-0.10); IMMATURE GRAN PERCENT AUTO 0 % (0-1); LYMPHOCYTES ABSOLUTE AUTO 0.71 K/mm3 (0.84-5.20); LYMPHOCYTES PERCENT AUTO 8 % (21-46); MONOCYTES ABSOLUTE AUTO 0.73 K/mm3 (0.16-1.47); MONOCYTES PERCENT AUTO 8 % (4-13); Mean Corpuscular HGB 27.2 pg (26.0-34.0); Mean Corpuscular HGB Conc 32.8 g/dL (31.5-36.5); Mean Corpuscular Volume 83 fL (80-100); Mean Platelet Volume 12.4 fL (9.1-12.4); NEUTROPHILS ABSOLUTE AUTO 7.12 K/mm3 (1.96-9.15); NEUTROPHILS PERCENT AUTO 81 % (41-73); Platelet Count 180 K/mm3 (150-400); RDW Coefficient Variation 17.2 % (11.7-14.2); RDW Standard Deviation 52.2 fL (35.1-46.3); Red Blood Cell Count 3.78 M/mm3 (4.30-5.90); White Blood Cell Count 8.77 K/mm3 (4.00-11.30)
[2020-12-08 05:33] LABS: Anion Gap 10 mmol/L (6-16); Blood Urea Nitrogen 71 mg/dL (8-24); Bun/Creatinine Ratio 29.2 (12.0-20.0); CO2, Blood 23 mmol/L (21-32); Calcium, Blood 7.7 mg/dL (8.5-10.1); Chloride, Blood 105 mmol/L (98-108); Creatinine, Blood 2.43 mg/dL (0.60-1.20); Glomerular Filtration Rate 28 (60-); Glucose, Blood 437 mg/dL (70-99); Potassium, Blood 4.1 mmol/L (3.5-5.5); Sodium, Blood 138 mmol/L (136-145)
[2020-12-08 05:34] LABS: Albumin, Blood 3.2 g/dL (3.4-5.0)
[2020-12-08 05:42] LABS: International Normalized Ratio 3.32; Prothrombin Time Results 33.5 Sec (9.7-11.5)
--- NOTE | 2020-12-08 06:12 | NUR ---
MACHINE TESTER SUMMARY PT HAS HAD HIGH BLOOD SUGARS TONIGHT. CBG [address] ALVAREZ AT THAT TIME AND GAVE ADDITIONAL 4 UNITS OF HUMALOG IN ADDITION TO SCHEDULED 10 UNITS OF SEMGLEE. AROUND 0300 PT WOKE UP TO USE RESTROOM AND WAS A BIT DISORIENTED AND STATED THAT HIS BLOOD SUGAR MAY BE LOW. CHECKED CBG AT THAT TIME AND WAS 401. SHORTLY AFTER WITH MORNING LAB DRAWS CBG 437 ALTHOUGH PT HAD NOT BEEN EATING ANYTHING THROUGH THE NIGHT. NOTIFIED DR BIRD WHO GAVE ORDER TO CHANGE SEMGLEE TO 20 UNITS BID AND TO GIVE FIRST DOSE NOW. WILL CONTINUE TO MONITOR.
--- NOTE | 2020-12-08 11:46 | NUR ---
BLOOD GLUCOSE THIS RN CALLED DR. CONRAD AND NOTIFIED HER OF PT'S BLOOD SUGAR OF 452. ORDERS TO GIVE INSULIN PER SLIDING SCALE AND RECHECK IN 2 HOURS. ADDED ADA RESTRICTION TO PT'S CARDIAC DIET. WILL CONTINUE TO MONITOR. CALL LIGHT IN REACH.
--- NOTE | 2020-12-08 16:51 | NUR ---
SHIFT SUMMARY- PT IS A/O, PLESANT AND COOPERATIVE. HE IS EATING AND DRINKING WELL. HE TOOK A SHOWER THIS SHIFT. HE WAS UP TO THE CHAIR FOR MEALS. HE IS RECIEVING IV ABX. HIS BLOOD SUGARS HAVE BEEN ELEVATED THIS SHIFT. HIS BED IS IN THE LOW POSITION AND CALL LIGHT IS WITHIN REACH.
[2020-12-09 05:20] LABS: Anion Gap 7 mmol/L (6-16); Blood Urea Nitrogen 78 mg/dL (8-24); Bun/Creatinine Ratio 29.1 (12.0-20.0); CO2, Blood 24 mmol/L (21-32); Calcium, Blood 8.1 mg/dL (8.5-10.1); Chloride, Blood 108 mmol/L (98-108); Creatinine, Blood 2.68 mg/dL (0.60-1.20); Glomerular Filtration Rate 25 (60-); Glucose, Blood 104 mg/dL (70-99); International Normalized Ratio 3.59; Phosphorus, Blood 4.2 mg/dL (2.5-4.9); Potassium, Blood 3.8 mmol/L (3.5-5.5); Prothrombin Time Results 36.1 Sec (9.7-11.5); Sodium, Blood 139 mmol/L (136-145)
--- NOTE | 2020-12-09 05:23 | NUR ---
BUSINESS PRACTICES OFFICER SUMMARY PT AAOX4 AND PLEASANT. STILL WITH 2+ EDEMA OF BLE BUT DOES LOOK SLIGHTLY IMPROVED COMPARED TO YESTERDAY. CBG 204 AT HS, HUMALOG HELD PER SLIDING SCALE BUT PT STILL RECIEVED 20 UNITS OF SEMGLEE. CBG 104 WITH AM LABS. PT REMAINS ON 2L O2 VIA NC AND CPAP AT NIGHT, O2 SATS LOW 90'S ON AVG. WILL CONTINUE TO MONITOR.
--- NOTE | 2020-12-09 19:46 | NUR ---
a+o, call light in reach, 2L via nc, saline locked, bsr shared with noc nurse, cbg's lower than yesterday but insulin coverage was required prior to each meal
--- NOTE | 2020-12-10 04:43 | NUR ---
SUMMARY: A/OX4, SPECIFIES NEEDS BUT MILDLY FORGETFULL AT TIMES. BED ALARM ON FOR OCCASIONAL IMPULSIVITY AND FALL RISK. HE USES URINAL INDEPENDENTLY AND IS SBA TO TOILET. PT HAD MEDIUM BM THIS SHIFT. PITTING EDEMA NOTED TO BLE'S. HE REMAINS ON 2L O2 W/SOB AND TACHYPNEA NOTED AT TIMES, SPO2 WNL ON CONT BIOX AND PT TOLERATED HOME BIPAP AT HS. STAFF UNABLE TO COLLECT SPUTUM SPEC D/T DRY WATER ANALYST COUGH. NSR W/BBB AND 1ST DEGREE BLOCK AT 60'S BPM. NO ACUTE CHANGES, VSS AND AFEBRILE. WCTM AND REPORT TO DAY RN.
[2020-12-10 04:46] LABS: BASOPHILS ABSOLUTE AUTO 0.06 K/mm3 (0.00-0.23); BASOPHILS PERCENT AUTO 1 % (0-2); EOSINOPHILS ABSOLUTE AUTO 0.25 K/mm3 (0.00-0.68); EOSINOPHILS PERCENT AUTO 3 % (0-6); Hematocrit 32.6 % (37.0-53.0); Hemoglobin 10.3 g/dL (13.5-17.5); IMMATURE GRAN ABSOLUTE AUTO 0.02 K/mm3 (0.00-0.10); IMMATURE GRAN PERCENT AUTO 0 % (0-1); LYMPHOCYTES ABSOLUTE AUTO 0.97 K/mm3 (0.84-5.20); LYMPHOCYTES PERCENT AUTO 13 % (21-46); MONOCYTES ABSOLUTE AUTO 0.72 K/mm3 (0.16-1.47); MONOCYTES PERCENT AUTO 9 % (4-13); Mean Corpuscular HGB 26.9 pg (26.0-34.0); Mean Corpuscular HGB Conc 31.6 g/dL (31.5-36.5); Mean Corpuscular Volume 85 fL (80-100); Mean Platelet Volume 12.6 fL (9.1-12.4); NEUTROPHILS PERCENT AUTO 74 % (41-73); Platelet Count 192 K/mm3 (150-400); RDW Coefficient Variation 17.2 % (11.7-14.2); RDW Standard Deviation 53.5 fL (35.1-46.3); Red Blood Cell Count 3.83 M/mm3 (4.30-5.90); White Blood Cell Count 7.72 K/mm3 (4.00-11.30)
[2020-12-10 05:11] LABS: International Normalized Ratio 2.62; Prothrombin Time Results 26.8 Sec (9.7-11.5)
[2020-12-10 05:13] LABS: Albumin, Blood 3.1 g/dL (3.4-5.0); Anion Gap 7 mmol/L (6-16); Blood Urea Nitrogen 84 mg/dL (8-24); Bun/Creatinine Ratio 31.1 (12.0-20.0); CO2, Blood 22 mmol/L (21-32); Chloride, Blood 108 mmol/L (98-108); Glomerular Filtration Rate 23 (60-); Glucose, Blood 217 mg/dL (70-99); Phosphorus, Blood 4.4 mg/dL (2.5-4.9); Potassium, Blood 4.3 mmol/L (3.5-5.5); Sodium, Blood 137 mmol/L (136-145)
--- NOTE | 2020-12-10 17:42 | NUR ---
SHIFT SUMMARY DR. GONZALEZ CONSULTED TODAY. 1L FLUID RESTRICTION STARTED, THIGH HIGH ROWAN HOSE PLACED, 24 HR URINE PROTIEN COLLECTION STARTED PER DR. GONZALEZ ORDERS. PT BLADDER SCANNED AFTER VOIDING THIS AFTERNOON. DR. BEDOLLA NOTIFIED AND ASKED FOR BLADDER SCAN TO BE REPEATED AT THE END OF SHIFT AND FOR STAFF TO CALL HIM WITH RESULTS. NO OTHER ACUTE CHANGES IN ASSESSMENT AT THIS TIME. VS REVIEWED. PT RESTING IN BED. SON AT BEDSIDE. CALL LIGHT IN REACH. DENIES OTHER NEEDS AT THIS TIME.
--- NOTE | 2020-12-10 18:33 | NUR ---
RETENTION DR. GONZALEZ NOTIFIED OF POST VOID BLADDER SCAN OF 415. ORDER FOR DUNBAR CATH PLACED. ALONE WITH FLOMAX DAILY AND PSA SCREEN LAB IN THE AM.
[2020-12-10 22:10] LABS: Source, Urine Catheter
[2020-12-10 22:12] LABS: Bilirubin, Urine Neg (Neg); Blood, Urine Neg (Neg); Glucose Qualitative, Urine Neg (Neg); Ketones, Urine Neg (Neg); Leukocyte Esterase, Urine Neg (Neg); Nitrite, Urine Neg (Neg); Protein, Urine Neg (Neg); Urobilinogen, Urine NORM (Normal)
[2020-12-10 22:16] LABS: Appearance, Urine Clear (Clear); Color, Urine Yellow (P-Yellow)
[2020-12-11 04:51] LABS: BASOPHILS ABSOLUTE AUTO 0.07 K/mm3 (0.00-0.23); BASOPHILS PERCENT AUTO 1 % (0-2); EOSINOPHILS ABSOLUTE AUTO 0.33 K/mm3 (0.00-0.68); EOSINOPHILS PERCENT AUTO 4 % (0-6); Hematocrit 33.2 % (37.0-53.0); Hemoglobin 10.7 g/dL (13.5-17.5); IMMATURE GRAN ABSOLUTE AUTO 0.02 K/mm3 (0.00-0.10); IMMATURE GRAN PERCENT AUTO 0 % (0-1); LYMPHOCYTES ABSOLUTE AUTO 1.39 K/mm3 (0.84-5.20); LYMPHOCYTES PERCENT AUTO 17 % (21-46); MONOCYTES ABSOLUTE AUTO 0.87 K/mm3 (0.16-1.47); MONOCYTES PERCENT AUTO 11 % (4-13); Mean Corpuscular HGB 27.2 pg (26.0-34.0); Mean Corpuscular HGB Conc 32.2 g/dL (31.5-36.5); Mean Corpuscular Volume 85 fL (80-100); Mean Platelet Volume 11.9 fL (9.1-12.4); NEUTROPHILS ABSOLUTE AUTO 5.55 K/mm3 (1.96-9.15); NEUTROPHILS PERCENT AUTO 67 % (41-73); Platelet Count 190 K/mm3 (150-400); RDW Coefficient Variation 17.2 % (11.7-14.2); RDW Standard Deviation 52.3 fL (35.1-46.3); Red Blood Cell Count 3.93 M/mm3 (4.30-5.90); White Blood Cell Count 8.23 K/mm3 (4.00-11.30)
[2020-12-11 05:07] LABS: International Normalized Ratio 2.2; Prothrombin Time Results 22.7 Sec (9.7-11.5)
[2020-12-11 05:11] LABS: Albumin, Blood 3.3 g/dL (3.4-5.0); Anion Gap 9 mmol/L (6-16); Blood Urea Nitrogen 83 mg/dL (8-24); Bun/Creatinine Ratio 31.7 (12.0-20.0); CO2, Blood 23 mmol/L (21-32); Calcium, Blood 8.3 mg/dL (8.5-10.1); Chloride, Blood 109 mmol/L (98-108); Creatinine, Blood 2.62 mg/dL (0.60-1.20); Glomerular Filtration Rate 24 (60-); Glucose, Blood 60 mg/dL (70-99); Magnesium, Blood 2.3 mg/dL (1.6-2.4); Phosphorus, Blood 4.6 mg/dL (2.5-4.9); Potassium, Blood 3.6 mmol/L (3.5-5.5); Prostate Specific Antigen 0.551 ng/mL (0.000-4.000); Sodium, Blood 141 mmol/L (136-145)
--- NOTE | 2020-12-11 06:21 | NUR ---
Rn Summary: Patient having some confusion during the night, wanting to go home, unsure if it was night or day. Pt is easily re-oriented and directable. Lyles cath was placed for urinary retention. Clear yellow urine. Continue to collect urine for 24 hour urine test. Patient has slept very little this shift, only restless once in a while. Continues on fluid restriction. Edema still present lower extremities. O2 on at 2 liters per NC. Call light in reach and bed alarm is on. Will continue to monitor.
--- NOTE | 2020-12-11 08:47 | NUR ---
HYPOGYCEMIA BS AT 0738 WAS 34. PT STATED HE WAS HUNGRY. PT WAS SLIGHTLY DISORIENTED AND CLAMMY. 240ML OF OJ PROVIDED. ORIENTATION IMPROVED AND BS INCREASED TO 49 AT 0802. PT WAS GIVEN BREAKFAST TRAY AND TOLD TO TRY TO EAT IT ALL. PT DID SO AND SUGAR WAS RECHECKED AT 0849 WITH A VALUE OF 133.
[2020-12-11 10:02] LABS: Protein, Urine Quantitative 6.2 mg/dL (0.0-11.9)
--- NOTE | 2020-12-11 17:40 | NUR ---
SHIFT SUMMARY NEW IV PLACED TO L ARM. DUNBAR CATH PATENT & DRAINIG. 24 HR URINE COLLECTED AND SENT TO LAB. PT VERBALIZED HE WAS HALLUCINATING CATS LAST NIGHT IN HIS ROOM. PER PTS FAMILY. TAKING NORVASC IN THE AM CAUSES THIS. DR. CONRAD NOTIFIED AND MEDICATION CHANGED TO PM ONLY. PT TITRATED TO 1L THIS SHIFT AND TOLERATING THIS SO FAR. SATING IN THE 90S WHILE SITTING UP IN HIS CHAIR. SON AT BEDSIDE. CALL LIGHT IN REACH. PT DENIES ANY NEEDS AT THIS TIME. VS REVIEWED. NO OTHER ACUTE CHANGES IN ASSESSMENT AT THIS TIME.
[2020-12-12 04:43] LABS: Hematocrit 30.2 % (37.0-53.0); Hemoglobin 9.8 g/dL (13.5-17.5)
[2020-12-12 04:57] LABS: International Normalized Ratio 2.04; Prothrombin Time Results 21.2 Sec (9.7-11.5)
[2020-12-12 05:05] LABS: Anion Gap 6 mmol/L (6-16); Blood Urea Nitrogen 85 mg/dL (8-24); Bun/Creatinine Ratio 34.8 (12.0-20.0); CO2, Blood 25 mmol/L (21-32); Calcium, Blood 8.2 mg/dL (8.5-10.1); Chloride, Blood 108 mmol/L (98-108); Creatinine, Blood 2.44 mg/dL (0.60-1.20); Glomerular Filtration Rate 26 (60-); Glucose, Blood 242 mg/dL (70-99); Magnesium, Blood 2.3 mg/dL (1.6-2.4); Phosphorus, Blood 4.7 mg/dL (2.5-4.9); Potassium, Blood 3.4 mmol/L (3.5-5.5); Sodium, Blood 139 mmol/L (136-145)
--- NOTE | 2020-12-12 06:28 | NUR ---
SHIFT SUMMARY: 75 Y/O MALE RESTED COMFORTABLY ALL SHIFT; DENIES PAIN OR NAUSEA; DUNBAR DRAINING CLEAR YELLOW FLUIDS; TELEMETRY REFLECTS NSR WITH FIRST DEGREE BUNDLE BRANCH BLOCK; EARLY AM CBG WAS 250 (RANDOM CHECK); ALERT AND ORIENTED X 4; BED ALARM APPLIED, BED LOW POSITION WITH CALL LIGHT AT SIDE.
--- NOTE | 2020-12-12 16:43 | NUR ---
SHIFT SUMMARY PT AxOx4. PLEASANT AND COOPERATIVE WITH CARE. PT ON FLUID RESTRICTION AND DIURETICS. PT'S IN FOR VISIT, UPDATED ON PLAN OF CARE. VITALS REVIEWED. PT ON RA MOST OF THIS SHIFT, BREATHING WITHOUT DIFFICULTY. CURRENTLY RESTING IN BED, VISITING . DENIES ANY NEEDS/PAIN AT THIS TIME. CALL LIGHT IN REACH.
--- NOTE | 2020-12-12 20:27 | NUR ---
SODA WORKER TECH ALERTED RN OF GRADUAL QT PROLONGATION OVER PAST X3 DAYS. WAS 0.48 ON 12/10, THEN 0.50 ON 12/11 AND IS NOW 0.51 TODAY. HOSPITALIST MADE AWARE AT THIS TIME W/ZITHROMAX DC'D D/T CAPABILITY OF QT PROLONGATION. PT ASYMPTOMATIC OF ANY CARDIAC DISTRESS AT THIS TIME.
[2020-12-13 04:46] LABS: International Normalized Ratio 2.02
[2020-12-13 04:49] LABS: Anion Gap 8 mmol/L (6-16); Blood Urea Nitrogen 87 mg/dL (8-24); Bun/Creatinine Ratio 37.3 (12.0-20.0); CO2, Blood 28 mmol/L (21-32); Calcium, Blood 8.1 mg/dL (8.5-10.1); Chloride, Blood 106 mmol/L (98-108); Creatinine, Blood 2.33 mg/dL (0.60-1.20); Glomerular Filtration Rate 27 (60-); Glucose, Blood 137 mg/dL (70-99); Phosphorus, Blood 4.4 mg/dL (2.5-4.9); Potassium, Blood 3.1 mmol/L (3.5-5.5); Sodium, Blood 142 mmol/L (136-145)
--- NOTE | 2020-12-13 05:14 | NUR ---
SUMMARY: PT A/OX4, CALLS APPROPRIATELY AND IS PLEASANT/COOPERATIVE W/CARE. HE'S UP W/SBA AND FWW TO TOILET AND IS DIURESING WELL ON 1L FR MAINTAINED. EDEMA PERSISTS TO BLE'S BUT HAS IMPROVED. PT OPTED TO WEAR 1L O2 T/O NOCTE INSTEAD OF BIPAP AND SPO2 REMAINED WNL ON CONT BIOX. HE'S ON TELEMETRY IN NSR W/BBB, 1ST DEGREE BLOCK AND OCCASIONAL PVC'S, HR 50'S-60'S BPM. SALES PROMOTION OFFICER ALERTED RN OF PROLONGED QT INTERVAL OVER X3 DAYS W/MD MADE AWARE AND ZITHROMAX DC'D. NO ACUTE CHANGES, VSS/AFEBRILE. POSSIBLE D/C TODAY W/HOME HEALTH. WCTM AND REPORT TO DAY RN.
--- NOTE | 2020-12-13 18:23 | NUR ---
SHIFT SUMMARY PT ALERTX4; CALLS APPROPRIATELY. PT ON TELE NS FIRST DEGREE BB/PVC @60S PER TELE; DENIES PAIN OR DISCOMFORT. PT STATED HE IS READY TO GO HOME. UPDATED AT BEDSIDE. DC'D BETTINA,. URINATING WITHOUT PROBLEMS. BED IS IN THE LWOEST POSITION AND CALL LIGHT WITHIN REACH
--- NOTE | 2020-12-14 03:01 | NUR ---
SHIFT SUMMARY NO ACUTE CHANGES TO REPORT THIS SHIFT, PT HAS RESTED MOST OF THE NIGHT AND HAS DENIED PAIN. 1 PA WITH AMBULATION, USES THE URINAL INDEPENDENTLY AT THE BEDSIDE. RESP E/U ON RA, FLUID RESTRICTION IN PLACE, PT VOIDING. EDEMA TO BLE. PLAN IS FOR DC TODAY. BED IN LOWEST POSITION, CALL LIGHT WITHIN REACH.
[2020-12-14 04:46] LABS: Hematocrit 34.5 % (37.0-53.0); Hemoglobin 11.2 g/dL (13.5-17.5)
[2020-12-14 05:00] LABS: International Normalized Ratio 2.12; Prothrombin Time Results 21.9 Sec (9.7-11.5)
[2020-12-14 05:11] LABS: Albumin, Blood 3.3 g/dL (3.4-5.0); Anion Gap 7 mmol/L (6-16); Blood Urea Nitrogen 84 mg/dL (8-24); Bun/Creatinine Ratio 36.7 (12.0-20.0); CO2, Blood 28 mmol/L (21-32); Calcium, Blood 8.6 mg/dL (8.5-10.1); Chloride, Blood 105 mmol/L (98-108); Creatinine, Blood 2.29 mg/dL (0.60-1.20); Glomerular Filtration Rate 28 (60-); Glucose, Blood 177 mg/dL (70-99); Magnesium, Blood 2.1 mg/dL (1.6-2.4); Potassium, Blood 3.4 mmol/L (3.5-5.5); Sodium, Blood 140 mmol/L (136-145)
[2020-12-14] MEDS ORDERED: Bumetanide2 MG PO (12:27)
--- NOTE | 2020-12-14 15:05 | NUR ---
DISCHARGE PT DISCHARGED. PT & EDUCATED ON HIS MEDICATIONS AND NEEDED FOLLOW UP APPOINTMENTS. PT ASKED TO MAKE DR APPOINTMENT HERSELF, SO SHE WAS ADVISED TO CALL TODAY TO GET AN APPOINTMENT. NO ACUTE CHANGES IN ASSESSMENT PRIOR TO DC. PT ESCORTED OUT BY AIDE AND DRIVEN HOME BY .
== END 2020-12-14 15:00 | disposition home health service (06) | DRG 291 ==
LOC: ER 19:17 → MEDS 19:18
PROVIDERS: Emergency Medicine; Family Medicine; Internal Medicine Nephrology; Pharmacist; ADMIT Internal Medicine
DX: I13.0 Hypertensive heart and chronic kidney disease with heart failure and stage 1 through stage 4 chronic kidney disease, or unspecified chronic kidney disease (principal); J18.9 Pneumonia, unspecified organism; I50.33 Acute on chronic diastolic (congestive) heart failure; J96.01 Acute respiratory failure with hypoxia; N25.81 Secondary hyperparathyroidism of renal origin; N17.9 Acute kidney failure, unspecified; N18.4 Chronic kidney disease, stage 4 (severe); K21.9 Gastro-esophageal reflux disease without esophagitis; Z20.822 Contact with and (suspected) exposure to COVID-19; M10.9 Gout, unspecified; E11.51 Type 2 diabetes mellitus with diabetic peripheral angiopathy without gangrene; E11.22 Type 2 diabetes mellitus with diabetic chronic kidney disease; D63.1 Anemia in chronic kidney disease; E88.09 Other disorders of plasma-protein metabolism, not elsewhere classified; E87.6 Hypokalemia; F32.9 Major depressive disorder, single episode, unspecified; G47.33 Obstructive sleep apnea (adult) (pediatric); E78.5 Hyperlipidemia, unspecified; I25.10 Atherosclerotic heart disease of native coronary artery without angina pectoris; Z95.1 Presence of aortocoronary bypass graft; Z95.2 Presence of prosthetic heart valve; Z88.8 Allergy status to other drugs, medicaments and biological substances; Z89.422 Acquired absence of other left toe(s); Z89.421 Acquired absence of other right toe(s); Z79.899 Other long term (current) drug therapy; Z79.4 Long term (current) use of insulin; Z79.01 Long term (current) use of anticoagulants
CPT/HCPCS: 36415; 71045; 76770; 80053; 80069; 81003; 81050; 82550; 82947; 83735; 83880; 84145; 84156; 84484; 85014; 85018; 85025; 85610; 93005; 93010; 94760; 94762; 96374; 97116; 97162; 97530; 99285-25; A9270; G0103; J0456; J0696; J0881; J1650; J1940; J7050; U0004

== ENCOUNTER 2023-05-28 13:17 | Emergency (ER) | payer OTHER ==
[~2023-05-28] VITALS: Ht 177.8 cm; Wt 95.2 kg
[~2023-05-28 13:17] MED LIST changes: +AMLO10 PO; +Budeprion Xl300 MG PO; +Bumetanide2 MG PO; +CALCIUM 600 +1 EA11 PO; +FERROUS GLUCON324 M2 PO; +INSULANI SC; +Isosorbide Mono30 MG PO; +METO50 PO; +OMEP20ER PO
[2023-05-28] MEDS ORDERED: SPIR25 PO (14:47)
[2023-05-28] MEDS ORDERED: JARDIANCE10 MG PO (14:50)
[2023-05-28] MEDS ORDERED: VITAMIN D325 MC3 PO (14:51)
[2023-05-28] MEDS ORDERED: AMOX500 (14:52)
[2023-05-28] MEDS ORDERED: ASCO500 PO (14:52)
[2023-05-28 17:27] LABS: Glucose, Body Fluid 25 mg/dL; Protein, Body Fluid 3.8 g/dL
[2023-05-28 17:33] LABS: BODY FLUID RBC 0.003 M/mm3 (0-0)
[2023-05-28 17:54] LABS: RBC Count, Synovial Fluid 3000 /mm3 (0-0)
[2023-05-28 17:58] LABS: WBC Count, Synovial Fluid 26940 /mm3 (0-180)
[2023-05-28 18:01] LABS: Body Fluid Crystals POS (NEGATIVE)
[2023-05-28 18:39] LABS: Appearance, Synovial Fluid Hazy (Clear); Color, Synovial Fluid Yellow (None-P Yel); Lymphs, Synovial Fluid 2 % (0-15); Monocytes/Macrophages, Synovia 9 % (0-65); Neutrophils, Synovial Fluid 89 % (0-24)
[2023-05-28 19:19] LABS: BASOPHILS ABSOLUTE AUTO 0.06 K/mm3 (0.00-0.23); BASOPHILS PERCENT AUTO 1 % (0-2); EOSINOPHILS ABSOLUTE AUTO 0.16 K/mm3 (0.00-0.68); EOSINOPHILS PERCENT AUTO 1 % (0-6); Hematocrit 37.4 % (37.0-53.0); Hemoglobin 12.1 g/dL (13.5-17.5); IMMATURE GRAN ABSOLUTE AUTO 0.07 K/mm3 (0.00-0.10); IMMATURE GRAN PERCENT AUTO 1 % (0-1); LYMPHOCYTES ABSOLUTE AUTO 1.31 K/mm3 (0.84-5.20); LYMPHOCYTES PERCENT AUTO 10 % (21-46); MONOCYTES ABSOLUTE AUTO 1.07 K/mm3 (0.16-1.47); MONOCYTES PERCENT AUTO 8 % (4-13); Mean Corpuscular HGB 26.9 pg (26.0-34.0); Mean Corpuscular HGB Conc 32.4 g/dL (31.5-36.5); Mean Corpuscular Volume 83 fL (80-100); Mean Platelet Volume 11.6 fL (9.1-12.4); NEUTROPHILS PERCENT AUTO 79 % (41-73); Platelet Count 198 K/mm3 (150-400); RDW Coefficient Variation 16.1 % (11.7-14.2); RDW Standard Deviation 48.9 fL (35.1-46.3); White Blood Cell Count 12.67 K/mm3 (4.00-11.30)
[2023-05-28 21:00] VITALS: BP 169/59
[2023-05-28] MEDS ORDERED: PRED20 PO (21:05)
== END 2023-05-28 21:24 | disposition home or self-care (01) ==
LOC: ER 13:17
PROVIDERS: Emergency Medicine
DX: M11.9 Crystal arthropathy, unspecified (principal); I13.0 Hypertensive heart and chronic kidney disease with heart failure and stage 1 through stage 4 chronic kidney disease, or unspecified chronic kidney disease; I50.9 Heart failure, unspecified; E11.22 Type 2 diabetes mellitus with diabetic chronic kidney disease; N18.30 Chronic kidney disease, stage 3 unspecified; M10.9 Gout, unspecified; K21.9 Gastro-esophageal reflux disease without esophagitis; I73.9 Peripheral vascular disease, unspecified; E78.5 Hyperlipidemia, unspecified; I25.10 Atherosclerotic heart disease of native coronary artery without angina pectoris; G47.33 Obstructive sleep apnea (adult) (pediatric); Z79.4 Long term (current) use of insulin; Z79.01 Long term (current) use of anticoagulants; Z79.899 Other long term (current) drug therapy; Z88.8 Allergy status to other drugs, medicaments and biological substances
CPT/HCPCS: 20610; 82945; 82947; 84157; 85025; 85651; 86140; 87070; 87075; 87205; 89051; 89060; 99284-25; A9270; J7512

== ENCOUNTER 2024-04-23 12:42 | Observation (INO) | payer OTHER ==
[~2024-04-23] VITALS: Ht 177.8 cm; Wt 103.1 kg
[~2024-04-23 12:42] MED LIST changes: -AMLO10 PO; +AMLO5 PO; +AMOX500; +ASCO500 PO; +JARDIANCE10 MG PO; +PRED20 PO; +VITAMIN D325 MC3 PO
[2024-04-23] MEDS ORDERED: FLU VACC TS2024-25(6MOS UP)/PF 45 MCG/0.5 ML SYRINGE IM SCH (15:25)
[2024-04-23 16:09] LABS: BASOPHILS ABSOLUTE AUTO 0.08 K/mm3 (0.00-0.23); BASOPHILS PERCENT AUTO 1 % (0-2); EOSINOPHILS ABSOLUTE AUTO 0.49 K/mm3 (0.00-0.68); EOSINOPHILS PERCENT AUTO 5 % (0-6); Hematocrit 34.6 % (37.0-53.0); IMMATURE GRAN ABSOLUTE AUTO 0.04 K/mm3 (0.00-0.10); IMMATURE GRAN PERCENT AUTO 0 % (0-1); LYMPHOCYTES ABSOLUTE AUTO 1.73 K/mm3 (0.84-5.20); LYMPHOCYTES PERCENT AUTO 18 % (21-46); MONOCYTES PERCENT AUTO 8 % (4-13); Mean Corpuscular HGB 26.1 pg (26.0-34.0); Mean Corpuscular HGB Conc 31.8 g/dL (31.5-36.5); Mean Corpuscular Volume 82 fL (80-100); NEUTROPHILS ABSOLUTE AUTO 6.67 K/mm3 (1.96-9.15); NEUTROPHILS PERCENT AUTO 68 % (41-73); Platelet Count 226 K/mm3 (150-400); RDW Coefficient Variation 17.8 % (11.7-14.2); RDW Standard Deviation 52.9 fL (35.1-46.3); Red Blood Cell Count 4.22 M/mm3 (4.30-5.90); White Blood Cell Count 9.81 K/mm3 (4.00-11.30)
[2024-04-23 16:28] LABS: Albumin, Blood 3.3 g/dL (3.4-5.0); Albumin/Globulin Ratio 0.9 (0.8-1.8); Bilirubin, Total 0.7 mg/dL (0.1-1.0); Bun/Creatinine Ratio 46.2 (12.0-20.0); Calcium, Blood 7.5 mg/dL (8.5-10.1); Creatinine, Blood 1.97 mg/dL (0.60-1.20); Globulin, Blood 3.8 g/dL (2.2-4.0); Total Protein, Blood 7.1 g/dL (6.4-8.2)
[2024-04-23] MEDS ORDERED: Bumetanide 0.25 MG/ML 4ML ViaL IV SCH ×2 (18:00)
[2024-04-23 18:35] LABS: International Normalized Ratio 2.72
--- NOTE | 2024-04-23 19:20 | NUR ---
PT ARRIVED FROM ER AT 1847HRS. REPORT TO BOB BRISENO. PT AMBULATED IN TO BED WITH WALKER, S/B ASSIST ONLY.
[2024-04-23] MEDS ORDERED: FINA5 PO (20:20)
[2024-04-23] MEDS ORDERED: GLUCOSE4 GM PO (20:20)
[2024-04-23] MEDS ORDERED: EUCERIN ADVANC454 GM TOP (20:22)
[2024-04-23] MEDS ORDERED: FAMO10 PO (20:23)
[2024-04-23 20:48] VITALS: BP 147/55
[2024-04-23] MEDS ORDERED: Docusate Sodium 100 MG Cap PO SCH (21:00)
[2024-04-23] MEDS ORDERED: Insulin Human Lispro 100 Units/ML 3ML Syringe SC SCH (21:00)
[2024-04-23] MEDS ORDERED: Tamsulosin HCl 0.4 MG Cap PO SCH (21:00)
--- NOTE | 2024-04-24 04:11 | NUR ---
SHIFT SUMMARY 78 YR M ADMITTED AT SHIFT CHANGE FROM ED. FULL CODE. PT IS A&O X 4. HE GETS VERY SOB W/ EXERTION, EVEN JUST SITTING UP AT BEDSIDE. HE IS DIURESING SO HE HAS HAD TO USE THE URINAL FREQUENTLY THROUGHOUT THE NIGHT. HE SITS AT BEDSIDE TO USE IT AND GETS SOB W/ LABORED BREATHING. ONCE HE LAYS BACK DOWN IT IS BETTER. HE HAS HAD NO C/O PAIN OR DISCOMFORT THIS SHIFT. HE IS VERY PLEASANT AND COOPERATIVE WITH CARE. BED IS IN LOW POSITION AND CALL LIGHT IN REACH.
[2024-04-24 04:24] LABS: Hematocrit 33.7 % (37.0-53.0); Mean Corpuscular HGB 26.3 pg (26.0-34.0); Mean Corpuscular HGB Conc 32.6 g/dL (31.5-36.5); Mean Corpuscular Volume 80 fL (80-100); Mean Platelet Volume 11.1 fL (9.1-12.4); Platelet Count 210 K/mm3 (150-400); RDW Coefficient Variation 17.9 % (11.7-14.2); RDW Standard Deviation 51.7 fL (35.1-46.3); Red Blood Cell Count 4.19 M/mm3 (4.30-5.90); White Blood Cell Count 10.22 K/mm3 (4.00-11.30)
[2024-04-24 04:29] VITALS: BP 152/39
[2024-04-24 04:40] LABS: International Normalized Ratio 2.55; Prothrombin Time Results 25.5 Sec (9.7-11.5)
[2024-04-24 04:44] LABS: Albumin, Blood 3.2 g/dL (3.4-5.0); Albumin/Globulin Ratio 0.8 (0.8-1.8); Bilirubin, Total 1.4 mg/dL (0.1-1.0); Bun/Creatinine Ratio 46.6 (12.0-20.0); Calcium, Blood 7.2 mg/dL (8.5-10.1); Creatinine, Blood 1.91 mg/dL (0.60-1.20); Globulin, Blood 3.9 g/dL (2.2-4.0); Total Protein, Blood 7.1 g/dL (6.4-8.2)
[2024-04-24 07:26] VITALS: BP 154/49
[2024-04-24] MEDS ORDERED: Ferrous Sulfate 325 MG Tab PO SCH (09:00)
[2024-04-24] MEDS ORDERED: Ascorbic Acid 500 MG Tab PO SCH (09:00)
[2024-04-24] MEDS ORDERED: Finasteride 5 MG Tab PO SCH (09:00)
[2024-04-24] MEDS ORDERED: Allopurinol 100 MG Tab PO SCH (09:00)
[2024-04-24] MEDS ORDERED: Spironolactone 25 MG Tab PO SCH (09:00)
[2024-04-24] MEDS ORDERED: Isosorbide Mononitrate 30 MG TABCR PO SCH (09:00)
[2024-04-24] MEDS ORDERED: Calcium/Vit D 600 mg-400 Unit Tab PO SCH (09:00)
[2024-04-24] MEDS ORDERED: Heparin Sodium 5000 Units/ML 1ML MDV SC SCH (09:00)
[2024-04-24] MEDS ORDERED: Eucerin Unscented Lotion 240 ml TOP PRN (09:10)
[2024-04-24] MEDS ORDERED: Glucose Oral Gel 15 GM TUBE PO PRN (09:10)
[2024-04-24] MEDS ORDERED: Bumetanide 0.25 MG/ML 4ML ViaL IV SCH (12:00)
[2024-04-24] MEDS ORDERED: Fluconazole 100 MG Tab PO SCH (12:00)
--- NOTE | 2024-04-24 12:01 | NUR ---
REPORTED BS [address] BABB ANSWERING MACHINE, WILL WIAT FOR FURTHER INSULIN ORDERS
[2024-04-24] MEDS ORDERED: Insulin Human Lispro 100 Units/ML 3ML Syringe SC ONE (13:00)
[2024-04-24 15:36] VITALS: BP 143/68
[2024-04-24] MEDS ORDERED: Insulin Human Lispro 100 Units/ML 3ML Syringe SC SCH (16:30)
[2024-04-24] MEDS ORDERED: Warfarin Sodium 4 MG Tab PO SCH (18:00)
[2024-04-24 19:29] VITALS: BP 149/44
[2024-04-24] MEDS ORDERED: Insulin Glargine-Yfgn 100 Unit/mL 3 ML SYR SC SCH ×2 (21:00)
[2024-04-24] MEDS ORDERED: Atorvastatin 40 MG Tab PO SCH (21:00)
[2024-04-25 04:49] VITALS: BP 128/45
[2024-04-25 05:31] LABS: International Normalized Ratio 2.9; Prothrombin Time Results 28.7 Sec (9.7-11.5)
[2024-04-25 05:58] LABS: Anion Gap 13 mmol/L (3-11); Blood Urea Nitrogen 91 mg/dL (8-24); Bun/Creatinine Ratio 48.1 (12.0-20.0); CO2, Blood 21 mmol/L (21-32); Calcium, Blood 7.4 mg/dL (8.5-10.1); Chloride, Blood 111 mmol/L (98-108); Creatinine, Blood 1.89 mg/dL (0.60-1.20); Glomerular Filtration Rate 35 (60-); Glucose, Blood 189 mg/dL (70-99); Phosphorus, Blood 3.2 mg/dL (2.5-4.9); Potassium, Blood 3.4 mmol/L (3.5-5.5); Sodium, Blood 142 mmol/L (136-145)
[2024-04-25 07:37] VITALS: BP 136/52
[2024-04-25] MEDS ORDERED: Cholecalciferol 1000 Unit Tablet (=25MCG) PO SCH (09:00)
[2024-04-25] MEDS ORDERED: Famotidine 20 MG Tab PO SCH (09:00)
[2024-04-25] MEDS ORDERED: Insulin Glargine-Yfgn 100 Unit/mL 3 ML SYR SC SCH (09:00)
[2024-04-25] MEDS ORDERED: FERSU300 PO (11:24)
[2024-04-25] MEDS ORDERED: Diflucan100 MG PO (11:25)
[2024-04-25] MEDS ORDERED: Potassium Chloride 20 MEQ TabCR PO STA (13:40)
--- NOTE | 2024-04-25 14:43 | NUR ---
PT AWAKE DURING SHIFT REPORT. PLEASANT AND TALKATIVE. BED ALARM ON FOR SAFETY PT CAN BE IMPULSIVE AND FORGETFUL. PT UP TO EOB TO USE URINAL INDEPENDENTLY. ALSO ABLE TO AMBULATE TO BTHRM USING FWW WITH SBA. DR BABB IN TO SEE PT AND DISCUSS PLAN OF CARE. PT WANTING TO GO HOME. PT'S IN WELL. D/C ORDERS PLACED. [facility] PER [facility]'S . D/C INSTRUCTIONS REVIEWED WITH PT AND . ALL BELONGINGS TAKEN OUT BY . PT ASSISTED TO 'S CAR VIA W/C. PT'S NOTIFIED TO GIVE 20 MEQ'S OF POTASSSIUM TODAY, PER DR BABB.
== END 2024-04-25 13:35 | disposition home or self-care (01) ==
LOC: ER 12:42 → MEDS 15:24
PROVIDERS: ADMIT Internal Medicine
DX: I13.0 Hypertensive heart and chronic kidney disease with heart failure and stage 1 through stage 4 chronic kidney disease, or unspecified chronic kidney disease (principal); E11.22 Type 2 diabetes mellitus with diabetic chronic kidney disease; N18.4 Chronic kidney disease, stage 4 (severe); I50.33 Acute on chronic diastolic (congestive) heart failure; R79.89 Other specified abnormal findings of blood chemistry; E87.0 Hyperosmolality and hypernatremia; I34.2 Nonrheumatic mitral (valve) stenosis; I25.10 Atherosclerotic heart disease of native coronary artery without angina pectoris; E78.5 Hyperlipidemia, unspecified; N40.0 Benign prostatic hyperplasia without lower urinary tract symptoms; M10.9 Gout, unspecified; G47.33 Obstructive sleep apnea (adult) (pediatric); E11.51 Type 2 diabetes mellitus with diabetic peripheral angiopathy without gangrene; K21.9 Gastro-esophageal reflux disease without esophagitis; D63.8 Anemia in other chronic diseases classified elsewhere; D50.9 Iron deficiency anemia, unspecified; Z95.2 Presence of prosthetic heart valve; Z79.01 Long term (current) use of anticoagulants; Z79.52 Long term (current) use of systemic steroids; Z79.4 Long term (current) use of insulin; Z79.84 Long term (current) use of oral hypoglycemic drugs; Z79.899 Other long term (current) drug therapy; Z88.8 Allergy status to other drugs, medicaments and biological substances; Z89.422 Acquired absence of other left toe(s); Z89.421 Acquired absence of other right toe(s)
CPT/HCPCS: 36415; 80053; 80069; 82947; 83735; 83880; 84100; 84484; 85025; 85027; 85610; 93306; 96374; 96376; 99285-25; A9270; G0378; J1815

== ENCOUNTER 2024-04-26 13:34 | Inpatient (IN) | payer OTHER ==
[~2024-04-26] VITALS: Ht 177.8 cm; Wt 101.7 kg
[~2024-04-26 13:34] MED LIST changes: +Diflucan100 MG PO; +EUCERIN ADVANC454 GM TOP; +FAMO10 PO; +FERSU300 PO; +FINA5 PO; +GLUCOSE4 GM PO
[2024-04-26 14:21] LABS: International Normalized Ratio 3.36; Prothrombin Time Results 32.9 Sec (9.7-11.5)
[2024-04-26 14:28] LABS: BASOPHILS ABSOLUTE AUTO 0.06 K/mm3 (0.00-0.23); BASOPHILS PERCENT AUTO 1 % (0-2); EOSINOPHILS ABSOLUTE AUTO 0.34 K/mm3 (0.00-0.68); EOSINOPHILS PERCENT AUTO 4 % (0-6); Hematocrit 34.2 % (37.0-53.0); Hemoglobin 11.1 g/dL (13.5-17.5); IMMATURE GRAN ABSOLUTE AUTO 0.05 K/mm3 (0.00-0.10); IMMATURE GRAN PERCENT AUTO 1 % (0-1); LYMPHOCYTES ABSOLUTE AUTO 1.04 K/mm3 (0.84-5.20); LYMPHOCYTES PERCENT AUTO 12 % (21-46); MONOCYTES PERCENT AUTO 9 % (4-13); Mean Corpuscular HGB 26.1 pg (26.0-34.0); Mean Corpuscular HGB Conc 32.5 g/dL (31.5-36.5); Mean Corpuscular Volume 80 fL (80-100); Mean Platelet Volume 11.6 fL (9.1-12.4); NEUTROPHILS ABSOLUTE AUTO 6.74 K/mm3 (1.96-9.15); NEUTROPHILS PERCENT AUTO 75 % (41-73); Platelet Count 192 K/mm3 (150-400); RDW Coefficient Variation 17.9 % (11.7-14.2); Red Blood Cell Count 4.26 M/mm3 (4.30-5.90); White Blood Cell Count 9.03 K/mm3 (4.00-11.30)
[2024-04-26 14:35] LABS: Albumin, Blood 2.9 g/dL (3.4-5.0); Albumin/Globulin Ratio 0.7 (0.8-1.8); Bilirubin, Total 1.3 mg/dL (0.1-1.0); Bun/Creatinine Ratio 35.3 (12.0-20.0); Calcium, Blood 7.5 mg/dL (8.5-10.1); Creatinine, Blood 2.72 mg/dL (0.60-1.20); Globulin, Blood 3.9 g/dL (2.2-4.0); Potassium, Blood 4.6 mmol/L (3.5-5.5); Total Protein, Blood 6.8 g/dL (6.4-8.2)
[2024-04-26] MEDS ORDERED: Aspirin 325 MG Tab PO ONE (15:00)
[2024-04-26] MEDS ORDERED: FLU VACC TS2024-25(6MOS UP)/PF 45 MCG/0.5 ML SYRINGE IM SCH (16:50)
[2024-04-26 19:01] VITALS: BP 118/73
[2024-04-26 19:04] VITALS: BP 118/73
[2024-04-26] MEDS ORDERED: Atropine Sulfate 0.1 MG/ML 10ML SYR IV PRN (19:40)
[2024-04-26] MEDS ORDERED: Tamsulosin HCl 0.4 MG Cap PO SCH (21:00)
[2024-04-26] MEDS ORDERED: Insulin Glargine-Yfgn 100 Unit/mL 3 ML SYR SC SCH (21:00)
[2024-04-26] MEDS ORDERED: Atorvastatin 40 MG Tab PO SCH (21:00)
--- NOTE | 2024-04-26 21:30 | NUR ---
UPDATE SPOKE WITH DR. MORALES REGARDING CARDIOLOGY'S NOTE RECOMMENDING COBRA TRANSFER FOR PPM PLACEMENT. DR. MORALES TO TALK WITH DR. BIRD, BUT TRANSFER ORDERS TO COME IN THE AM PER MD UNLESS PT BECOMES HEMODYNAMICALLY UNSTABLE.
[2024-04-27 00:20] VITALS: BP 100/80
[2024-04-27 05:25] LABS: BASOPHILS ABSOLUTE AUTO 0.06 K/mm3 (0.00-0.23); BASOPHILS PERCENT AUTO 1 % (0-2); EOSINOPHILS PERCENT AUTO 4 % (0-6); Hematocrit 32.6 % (37.0-53.0); Hemoglobin 10.8 g/dL (13.5-17.5); IMMATURE GRAN ABSOLUTE AUTO 0.03 K/mm3 (0.00-0.10); IMMATURE GRAN PERCENT AUTO 0 % (0-1); LYMPHOCYTES ABSOLUTE AUTO 1.19 K/mm3 (0.84-5.20); LYMPHOCYTES PERCENT AUTO 13 % (21-46); MONOCYTES ABSOLUTE AUTO 0.76 K/mm3 (0.16-1.47); MONOCYTES PERCENT AUTO 8 % (4-13); Mean Corpuscular HGB 26.2 pg (26.0-34.0); Mean Corpuscular HGB Conc 33.1 g/dL (31.5-36.5); Mean Corpuscular Volume 79 fL (80-100); Mean Platelet Volume 11.9 fL (9.1-12.4); NEUTROPHILS ABSOLUTE AUTO 6.57 K/mm3 (1.96-9.15); NEUTROPHILS PERCENT AUTO 73 % (41-73); Platelet Count 197 K/mm3 (150-400); RDW Coefficient Variation 18.1 % (11.7-14.2); RDW Standard Deviation 51.8 fL (35.1-46.3); Red Blood Cell Count 4.12 M/mm3 (4.30-5.90); White Blood Cell Count 9.01 K/mm3 (4.00-11.30)
[2024-04-27 05:46] LABS: Anti-Xa UFH, PHA Monitoring <0.10 IU/mL; International Normalized Ratio 3.43; Prothrombin Time Results 33.5 Sec (9.7-11.5)
[2024-04-27 05:47] VITALS: BP 144/42
[2024-04-27 06:03] LABS: Albumin/Globulin Ratio 0.8 (0.8-1.8); Bilirubin, Total 1.2 mg/dL (0.1-1.0); Bun/Creatinine Ratio 36.7 (12.0-20.0); Calcium, Blood 7.6 mg/dL (8.5-10.1); Creatinine, Blood 2.78 mg/dL (0.60-1.20); Globulin, Blood 3.6 g/dL (2.2-4.0); Potassium, Blood 4.1 mmol/L (3.5-5.5); Total Protein, Blood 6.6 g/dL (6.4-8.2)
--- NOTE | 2024-04-27 06:55 | NUR ---
EOS: PT'S LOWEST HEART RATE DURING THE NIGHT WAS 33, NOT SUSTAINED. STAYED MOSTLY IN THE 40S ALL NIGHT. ABLE TO MAINTAIN BPS, NO C/O OF DIZZINESS, LIGHTHEADEDNESS OR ANY CHEST DISCOMFORT. MILD HEADACHE REPORTED BUT ALSO THINKS IT MAY BE DUE TO THE PAIN IN HIS RIGHT ANKLE. CALM AND COOPERATIVE ALL NIGHT, MINIMAL REST, BLADDER SCANNED FOR 531 THIS AM, WILL STRAIGHT CATH.
[2024-04-27 07:26] VITALS: BP 151/46
--- NOTE | 2024-04-27 07:52 | NUR ---
0650 STRAIGHT CATH'D FOR 580ML AFTER BLADDER SCAN OF 531. PT TOLERATED WELL.
[2024-04-27] MEDS ORDERED: Insulin Human Lispro 100 Units/ML 3ML Syringe SC SCH (08:30)
[2024-04-27] MEDS ORDERED: Ascorbic Acid 500 MG Tab PO SCH (09:00)
[2024-04-27] MEDS ORDERED: Aspirin 81 MG Chew PO SCH (09:00)
[2024-04-27] MEDS ORDERED: Cholecalciferol 1000 Unit Tablet (=25MCG) PO SCH (09:00)
[2024-04-27] MEDS ORDERED: Finasteride 5 MG Tab PO SCH (09:00)
[2024-04-27] MEDS ORDERED: Ferrous Sulfate 325 MG Tab PO SCH (09:00)
[2024-04-27] MEDS ORDERED: Allopurinol 100 MG Tab PO SCH (09:00)
[2024-04-27] MEDS ORDERED: Calcium/Vit D 600 mg-400 Unit Tab PO SCH (09:00)
[2024-04-27 11:21] VITALS: BP 104/82
[2024-04-27 12:31] VITALS: BP 104/82
--- NOTE | 2024-04-27 13:19 | NUR ---
PT WILL BE COBRA TRANSFERING TO [facility] IN [place]. REPORT WAS GIVEN TO JOHN BRISENO. MORNING SUMMARY THE PT IS A&OX4, CALLS APPROPRAITELY, AND MAKES HIS NEEDS KNOWN. THE PT HAS BEEN IN A SECOND DEGREE HEART BLOACK AN DSB W/ BBB AND FHB 33-40'S THIS SHIFT. BP STABLE. THE PT IS COBRA TRANSFERINT FOR A PACEMAKER. HE HAS DENIED DIZZINESS OR LIGHT HEADEDNESS BUT HAS STATED THAT HE HAS THE FEELING OF "RIGHT BEFORE YOU PASS OUT". PT HAS BEEN BEDREST THIS SHIFT. HE WAS C/O SOME RIGHT ANKLE PAIN AND A 3V ANKLE XR WAS TAKEN. NONDISPLACED FX'S FOUND. THIS WAS REPORTED OFF THE [facility] IN [place]. THE PT HAS BEEN ON 2L NC W/ SP02 92-93%. THE PT DENIES ANY SOB. HE HAS BEEN RETAINING URINE AND HAS BEEN STRAIGHT CATH'D PER PROTOCOL. FAMILY HAS BEEN AT BEDSIDE AND UPDATED ON CARE. SEE NOTES FOR UPDATES.
[2024-04-27 13:31] VITALS: BP 86/73
[2024-04-27] MEDS ORDERED: Acetaminophen 500 MG Tab PO PRN (13:35)
[2024-04-27] MEDS ORDERED: HYDROcodone 5-APAP 325 TAB PO PRN (13:35)
--- NOTE | 2024-04-27 14:05 | NUR ---
DR. MOSCOSO CAME TO BEDSIDE AND TALKED WITH THE FAMILY ABOUT R ANKLE NONDISPLACED FX. A EGG CRATE BRACE WAS PLACED FOR SUPPORT DURING TRANSFER. THE PT HAVING 7/10 PAIN AND MEDICATED W/ 1000MG TYLENOL. THE PT IS HAVING SOFT BP, DR. MOSCOSO AWARE.
[2024-04-28] MEDS ORDERED: Famotidine 20 MG Tab PO SCH (09:00)
== END 2024-04-27 15:11 | disposition short-term general hospital (02) | DRG 309 ==
LOC: ER 13:34 → PCU 13:35
PROVIDERS: Emergency Medicine; ADMIT Internal Medicine
DX: I44.2 Atrioventricular block, complete (principal); I13.0 Hypertensive heart and chronic kidney disease with heart failure and stage 1 through stage 4 chronic kidney disease, or unspecified chronic kidney disease; I24.89 Other forms of acute ischemic heart disease; N17.9 Acute kidney failure, unspecified; I50.32 Chronic diastolic (congestive) heart failure; N18.4 Chronic kidney disease, stage 4 (severe); I45.2 Bifascicular block; E11.22 Type 2 diabetes mellitus with diabetic chronic kidney disease; E11.51 Type 2 diabetes mellitus with diabetic peripheral angiopathy without gangrene; D63.1 Anemia in chronic kidney disease; E78.5 Hyperlipidemia, unspecified; M10.9 Gout, unspecified; N40.0 Benign prostatic hyperplasia without lower urinary tract symptoms; I25.10 Atherosclerotic heart disease of native coronary artery without angina pectoris; E66.9 Obesity, unspecified; Z68.30 Body mass index [BMI] 30.0-30.9, adult; S82.62XA Displaced fracture of lateral malleolus of left fibula, initial encounter for closed fracture; Z79.4 Long term (current) use of insulin; Z79.01 Long term (current) use of anticoagulants; Z95.1 Presence of aortocoronary bypass graft; Z95.2 Presence of prosthetic heart valve; Z88.8 Allergy status to other drugs, medicaments and biological substances
CPT/HCPCS: 36415; 51701; 51798; 70450; 73610; 80053; 82947; 83735; 83880; 84443; 84484; 85025; 85520; 85610; 85730; 93005; 93010; 94762; 99285-25; A9270; G0378; J1815

== ENCOUNTER 2025-01-04 18:55 | Emergency (ER) | payer OTHER ==
[~2025-01-04] VITALS: Ht 177.8 cm; Wt 83.9 kg
[2025-01-04 19:20] VITALS: BP 129/80
[2025-01-04 19:41] LABS: BASOPHILS ABSOLUTE AUTO 0.05 K/mm3 (0.00-0.23); BASOPHILS PERCENT AUTO 0 % (0-2); EOSINOPHILS ABSOLUTE AUTO 0.07 K/mm3 (0.00-0.68); EOSINOPHILS PERCENT AUTO 1 % (0-6); Hematocrit 35.9 % (37.0-53.0); Hemoglobin 11.7 g/dL (13.5-17.5); IMMATURE GRAN ABSOLUTE AUTO 0.04 K/mm3 (0.00-0.10); IMMATURE GRAN PERCENT AUTO 0 % (0-1); LYMPHOCYTES ABSOLUTE AUTO 1.53 K/mm3 (0.84-5.20); LYMPHOCYTES PERCENT AUTO 11 % (21-46); MONOCYTES ABSOLUTE AUTO 0.86 K/mm3 (0.16-1.47); MONOCYTES PERCENT AUTO 6 % (4-13); Mean Corpuscular HGB Conc 32.6 g/dL (31.5-36.5); Mean Corpuscular Volume 84 fL (80-100); NEUTROPHILS ABSOLUTE AUTO 11.73 K/mm3 (1.96-9.15); NEUTROPHILS PERCENT AUTO 82 % (41-73); NRBC ABSOLUTE 0.00 K/mm3 (0.00-0.02); NRBC Auto 0.0 /100 WBC (0.0-0.2); Platelet Count 185 K/mm3 (150-400); RDW Coefficient Variation 17.0 % (11.7-14.2); RDW Standard Deviation 51.2 fL (35.1-46.3)
[2025-01-04 19:56] LABS: Alanine Aminotransfer (ALT/SGP 23.0 U/L (12-78); Albumin, Blood 3.0 g/dL (3.4-5.0); Albumin/Globulin Ratio 0.7 (0.8-1.8); Anion Gap 13.0 mmol/L (3-11); Aspartate Aminotrans (AST/SGOT 52.0 U/L (12-37); Bilirubin, Total 0.7 mg/dL (0.1-1.0); Blood Urea Nitrogen 71.0 mg/dL (8-24); CO2, Blood 23.0 mmol/L (21-32); Calcium, Blood 8.0 mg/dL (8.5-10.1); Chloride, Blood 102.0 mmol/L (98-108); Creatinine, Blood 2.6 mg/dL (0.60-1.20); Globulin, Blood 4.4 g/dL (2.2-4.0); Glucose, Blood 237.0 mg/dL (70-99); Potassium, Blood 5.5 mmol/L (3.5-5.5); Sodium, Blood 132.0 mmol/L (136-145); Total Protein, Blood 7.4 g/dL (6.4-8.2)
[2025-01-04] MEDS ORDERED: CEFP200 PO (21:07)
== END 2025-01-04 21:20 | disposition home or self-care (01) ==
LOC: ER 18:55
PROVIDERS: Emergency Medicine
DX: N39.0 Urinary tract infection, site not specified (principal); I11.0 Hypertensive heart disease with heart failure; I50.9 Heart failure, unspecified; E11.9 Type 2 diabetes mellitus without complications; Z95.2 Presence of prosthetic heart valve; Z89.422 Acquired absence of other left toe(s); Z89.421 Acquired absence of other right toe(s); Z88.8 Allergy status to other drugs, medicaments and biological substances; Z79.01 Long term (current) use of anticoagulants; Z79.4 Long term (current) use of insulin; Z79.899 Other long term (current) drug therapy; Z59.89 Other problems related to housing and economic circumstances
CPT/HCPCS: 51798; 71046; 80053; 84484; 85025; 93005; 93010; 99284-25

== ENCOUNTER 2025-04-14 22:40 | Emergency (ER) | payer OTHER | END 2025-04-15 02:46 | disposition home or self-care (01) | LOC: ER 22:40 | DX: T83.090A Other mechanical complication of cystostomy catheter, initial encounter (principal); T83.510A Infection and inflammatory reaction due to cystostomy catheter, initial encounter; N30.00 Acute cystitis without hematuria; Z88.8 Allergy status to other drugs, medicaments and biological substances; Z79.84 Long term (current) use of oral hypoglycemic drugs; E78.5 Hyperlipidemia, unspecified; I12.9 Hypertensive chronic kidney disease with stage 1 through stage 4 chronic kidney disease, or unspecified chronic kidney disease; N18.4 Chronic kidney disease, stage 4 (severe); K21.9 Gastro-esophageal reflux disease without esophagitis; M19.90 Unspecified osteoarthritis, unspecified site ==

== ENCOUNTER → 2025-05-13 | Outpatient (CLI) | payer OTHER ==
[~2025-05-13] MED LIST changes: +CEFP200 PO
[2025-05-18 05:48] LABS: CORTISOL,U FREE - RATIO TO CRT 14.88 ug/g CRT; CORTISOL,URINE FREE - PER 24H 10.7 ug/d (<=60.0); CORTISOL,URN FREE - PER VOLUME 5.95 ug/L; CREATININE,URINE - PER 24H 720 mg/d (600-2000); CREATININE,URINE - PER VOLUME 40 mg/dL; HOURS COLLECTED 24 hr
== END ==
LOC: LAB 09:00 → LAB SHORT 09:00 → LAB FUT 04-22 13:50
PROVIDERS: Internal Medicine Nephrology
DX: N18.30 Chronic kidney disease, stage 3 unspecified (principal); R94.6 Abnormal results of thyroid function studies; R94.5 Abnormal results of liver function studies; R76.9 Abnormal immunological finding in serum, unspecified; E29.1 Testicular hypofunction; E55.9 Vitamin D deficiency, unspecified; N25.81 Secondary hyperparathyroidism of renal origin; D75.1 Secondary polycythemia
CPT/HCPCS: 81050; 82530